=== PATIENT | male | born 1960 | race Caucasian/White ===

== ENCOUNTER 2021-06-09 13:48 | Emergency (ER) | payer MEDICARE, SELFPAY ==
--- NOTE | 2021-06-09 13:52 | ECG_ITS ---
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
[2021-06-09 14:08] VITALS: BP 138/76; PULSE 79; RESP 16; TEMP 37; O2SAT 96
--- NOTE | 2021-06-09 14:14 | XR_ITS ---
WS: [id number] XR chest 1V portable [id number] REASON FOR EXAM: SOB, Covid + FINDINGS: The heart and mediastinum are within normal limits. Calcified granulomatous disease is present in both hemithoraces. No acute pulmonary parenchymal or pleural abnormality is identified. Mild changes of degenerative spondylosis in the lower and mid thoracic spine. XR/XR chest 1V portable [id number] IMPRESSION: No acute chest abnormality identified.
--- NOTE | 2021-06-09 14:15 | W.ED.COVID ---
Documented by User: AMADOR Flores 06/10/21 08:03 HPI - COVID General: Chief Complaint: COVID symptoms Stated Complaint: COVID+:DIFF BREATHING,CP Time Seen by Provider: 06/09/21 14:12 Triage information: No fever, cough or shortness of breath. No known COVID + exposure last 14 days History of Present Illness: HPI Narrative: Patient is a 60-year-old male who comes to the ED with shortness of breath and chest pain. Patient was seen at PCP earlier today and they Covid tested patient and he was positive. They then sent patient here to the ED for PE work-up. Patient said he has had some mild aching chest pain that started approximately 2 days ago. Says it is constant and it started when he was at rest. He rates the pain 3 out of 10. He says it gets worse with exertion or after he eats. He also reports dry cough and some shortness of breath as well since onset of symptoms 2 days ago. COVID 19 common symptoms: positive chills, non-productive cough, dyspnea and body aches; negative fever(s), productive cough, fatigue, headache(s), throat pain, nasal congestion, nausea, vomiting or diarrhea COVID 19 other sytmptoms: positive chest pain COVID Results: No Data to Display Review of Systems Const: Reports: chills and body aches; Denies: fever(s) or fatigue Eyes: Denies: change in vision or eye discomfort ENMT: Denies: throat pain, odynophagia, nasal discharge or nasal congestion Card: Reports: chest pain; Denies: palpitations, edema, swelling of feet/ankles, dyspnea on exertion or orthopnea Resp: Reports: dyspnea and non-productive cough; Denies: productive cough GI: Denies: abdominal pain, nausea, vomiting, diarrhea, constipation or hematochezia : Denies: flank pain, difficulty urinating, dysuria or hematuria Musc: Denies: neck pain, back pain or extremity swelling Skin/Breast: Denies: rash or new lesions Neuro: Denies: headache(s), numbness in extremities or weakness in extremities Physical Exam Const: COMMON NORMALS: no acute distress, patient oriented x3 and alert GENERAL APPEARANCE: cooperative and comfortable HENMT: COMMON NORMALS: normocephalic HEAD & SCALP: normocephalic MOUTH: Normal oral and palatal mucosa present THROAT: posterior oropharynx normal and uvula midline Neck/C-Spine: COMMON NORMALS: supple GENERAL: Yes normal visual inspection Resp: COMMON NORMALS: normal respiratory effort, No retractions and No use of accessory muscles EFFORT & INSPECTION: Yes able to speak in complete sentences, No tachypneic, No respiratory distress, No labored, No Actively coughing and No audible wheezes AUSCULTATION: crackles Laterality: left (lower lobe-light crackles heard) Cardio: COMMON NORMALS: regular rate, regular rhythm, S1 normal heart sound present, S2 normal heart sound present, No gallops present (Cardio), No clicks present (Cardio), No murmurs present (Cardio) and Peripheral pulses 2+ throughout RATE: regular rate RHYTHM: regular rhythm HEART SOUNDS: S1 normal heart sound present and S2 normal heart sound present PERIPHERAL PULSES: Peripheral pulses 2+ throughout GI: COMMON NORMALS: Normal to inspection, nondistended, normoactive bowel sounds present, Soft to palpation, non-tender and no masses PALPATION: Yes Soft to palpation : COMMON NORMALS: Yes no CVA tenderness BLADDER/KIDNEY EXAM: Yes no CVA tenderness Back/Pelvis: COMMON NORMALS: no CVA tenderness Extremity: COMMON NORMALS: normal to inspection Neuro: COMMON NORMALS: patient oriented x3 and moves all extremities SENSORIUM/ORIENTATION: Yes alert Skin: GENERAL SKIN EXAM: dry skin Course ED course: Emergency department unit tender was able to get the COVID-19 test results from [facility] in [place], [place]. They faxed over the positive COVID-19 test and it was placed in his chart. Vital Signs: Vital signs: Vital Signs Temperature 98.6 F 06/09/21 14:08 Pulse Rate 85 06/09/21 17:40 Respiratory Rate 17 06/09/21 17:40 Blood Pressure 141/87 06/09/21 17:40 Pulse Oximetry 99 06/09/21 17:40 MDM - COVID MDM Narrative: Medical decision making narrative: Patient is a 60-year-old male who comes to the ED with shortness of breath and chest pain. Patient was seen at PCP earlier today and they Covid tested patient and he was positive. They then sent patient here to the ED for PE work-up. Chest pain is mild and he rates it 3 out of 10 it started 2 days ago at rest. Patient also having body aches and dry cough. Vitals stable. Exam findings are benign and patient appears in no acute distress or pain. CBC and CMP were unremarkable. Troponin is negative. D-dimer was 0.[address] I talked with Dr. Leiva about D-dimer levels and he did not recommend doing a CTA of the chest from a Covid positive patient at that D-dimer level. EKG showed normal sinus rhythm with no ST segment elevation or depression seen. Chest x-ray showed no pneumonia or other acute findings. The unit tender was able to get a copy of the COVID-19 positive test result from [facility] and [place] in put it in patient's chart. Patient was interested in getting the monoclonal antibody infusions and patient signed the consent form and I placed an order with case management for patient to be set up for MCA infusions as soon as possible. Patient diagnosed with COVID-19 and was discharged home with a prescription for Decadron. Return to ED precautions given. Patient understood and agreed with plan. Lab Data: Attestation: I reviewed the patient's lab results. Labs: Lab Results 06/09/21 06/09/21 06/09/21 15:27 15:27 15:27 WBC 3.4 10^3/uL L 10^ 3/uL (4.0-10.0) RBC 4.93 10^6/uL 10^6 /uL (4.1-5.3) Hgb 14.0 g/dL g/dL (11.7-16.6) Hct 42.9 % % (42.0-52.0) MCV 87.0 fl fl (80-94) MCH 28.4 pg pg (28.0-34.0) MCHC 32.6 g/dL g/dL (30.0-36.0) RDW 12.9 % % (12.1-15.1) Plt Count 212 10^3/cmm 10^3 /cmm (130-400) MPV 8.9 fL fL (7.4-10.4) Neut % (Auto) 72.0 % % Lymph % (Auto) 15.7 % % [place] % (Auto) 10.8 % % Eos % (Auto) 0.9 % % Baso % (Auto) 0.3 % % Neut # (Auto) 2.48 10^3/uL 10^3 /uL (1.8-7.7) Lymph # (Auto) 0.5 10^3/uL L 10^ 3/uL (0.8-4.8) [place] # (Auto) 0.4 10^3/uL 10^3/ uL (0.2-0.9) Eos # (Auto) 0.0 10^3/uL 10^3/ uL (0.0-0.8) Baso # (Auto) 0.0 10^3/uL 10^3/ uL (0.0-0.1) Nucleated RBC % (a uto) 0 % % Nucleated RBCs # 0.0 /100WBC /100W BC D-Dimer Sodium 137 mmol/L mmol/L (136-145) Potassium 3.9 mmol/L mmol/L (3.5-5.1) Chloride 99 mmol/L mmol/L (98-107) Carbon Dioxide 23 mmol/L mmol/L (22-29) Anion Gap 18.9 (5-19) BUN 13 mg/dL mg/dL (8-23) Creatinine 0.8 mg/dL mg/dL (0.7-1.2) GFR Calculation 98.6 mL/min mL/mi n (90-130) Glucose 75 mg/dL mg/dL (65-115) Calculated Osmolal ity 283 mOsm/kg L mOs m/kg (285-295) Calcium 8.5 mg/dL mg/dL (8.5-10.5) Troponin T Gen 5 n g/L 6 ng/L ng/L (0-15) NT-Pro-B Natriuret Pep 140 pg/mL H pg/mL (0-125) 06/09/21 15:27 WBC RBC Hgb Hct MCV MCH MCHC RDW Plt Count MPV Neut % (Auto) Lymph % (Auto) [place] % (Auto) Eos % (Auto) Baso % (Auto) Neut # (Auto) Lymph # (Auto) [place] # (Auto) Eos # (Auto) Baso # (Auto) Nucleated RBC % (a uto) Nucleated RBCs # D-Dimer 0.62 ug/mIFEU H u g/mIFEU (0-0.59) Sodium Potassium Chloride Carbon Dioxide Anion Gap BUN Creatinine GFR Calculation Glucose Calculated Osmolal ity Calcium Troponin T Gen 5 n g/L NT-Pro-B Natriuret Pep Imaging Data: CXR: Attestation: I personally reviewed and interpreted this imaging study as follows: Radiologist's impression: [address] [place] [address] XRay Report Signed Patient: Nicolas Garcia Unit #: [id number] : 1960 Age/Sex: 60 / M ADM Date: 06/09/21 Loc: ER Room/Bed: Attending Dr: Ordering Provider/Ordering MD: Edwin Ruano Date of Service: 06/09/21 Procedure(s): XR chest 1V portable [id number] Accession Number(s): [id number] Report Number: [id number] WS: [id number] XR chest 1V portable [id number] REASON FOR EXAM: SOB, Covid + FINDINGS: The heart and mediastinum are within normal limits. Calcified granulomatous disease is present in both hemithoraces. No acute pulmonary parenchymal or pleural abnormality is identified. Mild changes of degenerative spondylosis in the lower and mid thoracic spine. XR/XR chest 1V portable [id number] IMPRESSION: No acute chest abnormality identified. Dictated By: Jimmy Jimenez Jr, MD Signed By: Jimmy Jimenez Jr, MD Signed Date/Time: 06/09/21 1454 DD/ 1449 EKG Data: EKG 1: Attestation: I personally reviewed and interpreted this EKG as follows: EKG interpretation date: 06/09/21 Interpretation: Normal sinus rhythm, 60 bpm, no ST segment elevation or depression seen. COVID Results: No Data to Display Discharge Plan Discharge Patient Disposition: Home Clinical Impression: COVID-19 Condition: Stable Prescriptions: New dexamethasone [Decadron] 6 mg tablet 6 mg PO DAILY 7 Days Qty: 7 RF: 0 No Action atorvastatin 10 mg tablet 10 mg PO DAILY RF: 0 hydrocodone-acetaminophen 7.5-325 mg tablet 7.5 - 325 tab PO DAILY RF: 0 lisinopril 5 mg tablet 5 mg PO DAILY RF: 0 Discharge Orders: Discharge ED (Routine); Ordered 06/09/21 Ordered By: Edwin Ruano Referrals: Diane Marr PA-C [Primary Care Provider] - Discharge Diet: Regular Discharge Activity: Increase activity as tolerated Patient Instructions: Viral Syndrome (ED) Activity Restrictions/Additional Instructions: Follow-up with medical provider as directed. Case management will contact you to set up MCA infusion. Take medications as prescribed. Return to the ER or your medical provider if condition worsens. Please read and understand discharge instructions. Thank you for choosing [facility] for your healthcare needs today. Please realize this is an emergency room and that we are providing you with a medical screening exam and this may not be complete and all inclusive of all the testing and or work up that you may need to determine your ailment or severity of your illness. It is very important that you follow up as instructed or that you return to the Emergency Department should you have concerns or if your condition changes or worsens in any way. Coding Level of Care Code ED Head Waiter/Waitress Banquet for Chg Fwd Exam Comprehensive Documented by User: Jerardo Leiva DO 06/13/21 06:39 HPI - COVID General: Chief Complaint: COVID symptoms Stated Complaint: COVID+:DIFF BREATHING,CP Time Seen by Provider: 06/09/21 14:12 COVID Results: No Data to Display Course Vital Signs: Vital signs: Vital Signs Temperature 98.6 F 06/09/21 14:08 Pulse Rate 85 06/09/21 17:40 Respiratory Rate 17 06/09/21 17:40 Blood Pressure 141/87 06/09/21 17:40 Pulse Oximetry 99 06/09/21 17:40 MDM - COVID MDM Narrative: Medical decision making narrative: Chart reviewed and patient discussed with midlevel. Agree with assessment and plan. Lab Data: Labs: Lab Results 06/09/21 06/09/21 06/09/21 15:27 15:27 15:27 WBC 3.4 10^3/uL L 10^ 3/uL (4.0-10.0) RBC 4.93 10^6/uL 10^6 /uL (4.1-5.3) Hgb 14.0 g/dL g/dL (11.7-16.6) Hct 42.9 % % (42.0-52.0) MCV 87.0 fl fl (80-94) MCH 28.4 pg pg (28.0-34.0) MCHC 32.6 g/dL g/dL (30.0-36.0) RDW 12.9 % % (12.1-15.1) Plt Count 212 10^3/cmm 10^3 /cmm (130-400) MPV 8.9 fL fL (7.4-10.4) Neut % (Auto) 72.0 % % Lymph % (Auto) 15.7 % % [place] % (Auto) 10.8 % % Eos % (Auto) 0.9 % % Baso % (Auto) 0.3 % % Neut # (Auto) 2.48 10^3/uL 10^3 /uL (1.8-7.7) Lymph # (Auto) 0.5 10^3/uL L 10^ 3/uL (0.8-4.8) [place] # (Auto) 0.4 10^3/uL 10^3/ uL (0.2-0.9) Eos # (Auto) 0.0 10^3/uL 10^3/ uL (0.0-0.8) Baso # (Auto) 0.0 10^3/uL 10^3/ uL (0.0-0.1) Nucleated RBC % (a uto) 0 % % Nucleated RBCs # 0.0 /100WBC /100W BC D-Dimer Sodium 137 mmol/L mmol/L (136-145) Potassium 3.9 mmol/L mmol/L (3.5-5.1) Chloride 99 mmol/L mmol/L (98-107) Carbon Dioxide 23 mmol/L mmol/L (22-29) Anion Gap 18.9 (5-19) BUN 13 mg/dL mg/dL (8-23) Creatinine 0.8 mg/dL mg/dL (0.7-1.2) GFR Calculation 98.6 mL/min mL/mi n (90-130) Glucose 75 mg/dL mg/dL (65-115) Calculated Osmolal ity 283 mOsm/kg L mOs m/kg (285-295) Calcium 8.5 mg/dL mg/dL (8.5-10.5) Troponin T Gen 5 n g/L 6 ng/L ng/L (0-15) NT-Pro-B Natriuret Pep 140 pg/mL H pg/mL (0-125) 06/09/21 15:27 WBC RBC Hgb Hct MCV MCH MCHC RDW Plt Count MPV Neut % (Auto) Lymph % (Auto) [place] % (Auto) Eos % (Auto) Baso % (Auto) Neut # (Auto) Lymph # (Auto) [place] # (Auto) Eos # (Auto) Baso # (Auto) Nucleated RBC % (a uto) Nucleated RBCs # D-Dimer 0.62 ug/mIFEU H u g/mIFEU (0-0.59) Sodium Potassium Chloride Carbon Dioxide Anion Gap BUN Creatinine GFR Calculation Glucose Calculated Osmolal ity Calcium Troponin T Gen 5 n g/L NT-Pro-B Natriuret Pep COVID Results: No Data to Display Discharge Plan Discharge Patient Disposition: Home Clinical Impression: COVID-19 Condition: Stable Prescriptions: New dexamethasone [Decadron] 6 mg tablet 6 mg PO DAILY 7 Days Qty: 7 RF: 0 No Action atorvastatin 10 mg tablet 10 mg PO DAILY RF: 0 hydrocodone-acetaminophen 7.5-325 mg tablet 7.5 - 325 tab PO DAILY RF: 0 lisinopril 5 mg tablet 5 mg PO DAILY RF: 0 Discharge Orders: Discharge ED (Routine); Ordered 06/09/21 Ordered By: Edwin Ruano Referrals: Diane Marr PA-C [Primary Care Provider] - Discharge Diet: Regular Discharge Activity: Increase activity as tolerated Patient Instructions: Viral Syndrome (ED) Activity Restrictions/Additional Instructions: Follow-up with medical provider as directed. Case management will contact you to set up MCA infusion. Take medications as prescribed. Return to the ER or your medical provider if condition worsens. Please read and understand discharge instructions. Thank you for choosing [facility] for your healthcare needs today. Please realize this is an emergency room and that we are providing you with a medical screening exam and this may not be complete and all inclusive of all the testing and or work up that you may need to determine your ailment or severity of your illness. It is very important that you follow up as instructed or that you return to the Emergency Department should you have concerns or if your condition changes or worsens in any way. Coding Level of Care Code ED Head Waiter/Waitress Banquet for Dionne Marie Exam Comprehensive
[2021-06-09 15:40] LABS: Basophils % 0.3 %; Eosinophils % 0.9 %; Hematocrit 42.9 % (42.0-52.0); Lymphocytes # 0.5 10^3/uL (0.8-4.8); Lymphocytes % 15.7 %; Mean Corpuscular HGB Conc 32.6 g/dL (30.0-36.0); Mean Corpuscular Hemoglobin 28.4 pg (28.0-34.0); Mean Platelet Volume 8.9 fL (7.4-10.4); Monocytes # 0.4 10^3/uL (0.2-0.9); Monocytes % 10.8 %; Neutrophils # 2.48 10^3/uL (1.8-7.7); Nucleated Red Blood Cells % 0 %; Platelet Count 212 10^3/cmm (130-400); Red Blood Count 4.93 10^6/uL (4.1-5.3); Red Cell Distribution Width 12.9 % (12.1-15.1); White Blood Count 3.4 10^3/uL (4.0-10.0)
[2021-06-09 16:01] LABS: D Dimer 0.62 ug/mIFEU (0-0.59)
[2021-06-09 16:11] LABS: Troponin T (5th) Once 6 ng/L (0-15)
[2021-06-09 16:21] LABS: Anion Gap 18.9 (5-19); Blood Urea Nitrogen 13 mg/dL (8-23); Calcium 8.5 mg/dL (8.5-10.5); Carbon Dioxide 23 mmol/L (22-29); Chloride 99 mmol/L (98-107); Glomerular Filtration Rate 98.6 mL/min (90-130); Glucose 75 mg/dL (65-115); NT Pro B Type Natriuretic Pept 140 pg/mL (0-125); Osmolality Calculated 283 mOsm/kg (285-295); Potassium 3.9 mmol/L (3.5-5.1); Sodium 137 mmol/L (136-145)
[2021-06-09 16:57] VITALS: BP 120/77; PULSE 75; RESP 15; O2SAT 99
[2021-06-09 17:40] VITALS: BP 141/87; PULSE 85; RESP 17; O2SAT 99
--- NOTE | 2021-06-11 13:19 | DCPLANNER ---
fleet maintenance manager had message to schedule an outpatient MCA infusion for patient. fleet maintenance manager faxed order to centralized scheduling who will call patient with appointment information.
== END 2021-06-09 17:43 | disposition home or self-care (01) ==
PROVIDERS: Emergency Medicine; Emergency Provider Physician Assistant; PCP Physician Assistant
DX: U07.1 COVID-19 (principal)
CPT/HCPCS: 71045; 80048; 83880; 84484; 85025; 85378; 93005; 99283

== ENCOUNTER 2021-06-10 13:57 | Outpatient (CLI) | payer MEDICARE, SELFPAY ==
[2021-06-10 14:45] VITALS: BP 118/67; PULSE 78; RESP 18; TEMP 37; O2SAT 95; BMI 33.3
[2021-06-10 15:05] VITALS: BP 104/68; PULSE 67; RESP 16; O2SAT 96
[2021-06-10 16:06] VITALS: BP 113/71; PULSE 67; RESP 16; TEMP 36.8; O2SAT 98
== END 2021-06-10 13:58 | disposition home or self-care (01) ==
LOC: OPS 13:58
PROVIDERS: PCP Physician Assistant; Visit Provider Physician Assistant
DX: U07.1 COVID-19 (principal)
CPT/HCPCS: 96365

== ENCOUNTER → 2021-09-15 08:39 | Outpatient (BNVA) | payer MEDICARE, SELFPAY | PROVIDERS: PCP Physician Assistant; Visit Provider Orthopaedic Surgery | DX: M54.50 Low back pain, unspecified (principal) | CPT/HCPCS: 72050; 72110 ==

== ENCOUNTER → 2021-11-08 10:17 | Outpatient (BNVA) | payer MEDICARE, SELFPAY | PROVIDERS: PCP Family Medicine; Visit Provider Orthopaedic Surgery | DX: M48.062 Spinal stenosis, lumbar region with neurogenic claudication (principal) | CPT/HCPCS: 73130; 99214 ==

== ENCOUNTER 2021-12-12 20:22 | Inpatient (IN) | payer MEDICARE, SELFPAY ==
[2021-12-05 20:05] VITALS: BP 155/80; PULSE 78; RESP 17; TEMP 36.6; O2SAT 95
[2021-12-09 08:48] VITALS: BMI 24.3
--- NOTE | 2021-12-09 09:35 | P.ANESASSM_ITS ---
Pre-Anesthetic Assessment Height/Weight: Height 1.75 m Weight 74.843 kg Operation Date: 12/12/21 09:55 Proposed Procedures p Posterior Lumbar Interbody Fusion L4-S1 PLIF @ L4/5 [id number]/95541/M48.062(Not Applicable) - Michael Rutledge DO s Posterior Spinal FusionL4-S1(Not Applicable) - Michael Rutledge DO Familial anesthetic complications: None Was Beta Freddie taken within 24 hours: N/A Was Clonidine taken within 24 hours: N/A Social No alcohol and No tobacco Exam alert, oriented x 3, clear to auscultation bilaterally and regular rate & rhythm Airway Submandibular: within normal limits Cervical ROM: within normal limits Mallampati: Class II Dentition: full CV/HEM Hypertension Metabolic Hyperlipidemia [facility] [place] Lower Back Pain Chronic pain/opioid Anesthetic Plan ASA status: 3 Anesthesia: General Other: Discussed a.line and transfusion Medications/Allergies Home Medications Medication Instructions Recorded Confirmed Last Taken Type atorvastatin 10 mg tablet 10 mg PO DAILY 06/10/21 12/09/21 Unknown History lisinopril 5 mg tablet 5 mg PO DAILY 06/10/21 12/09/21 06/10/21 History hydrocodone 7.5 mg-acetaminophen 1 tab PO Q8H PRN 09/15/21 12/09/21 Unknown History 325 mg tablet fluticasone propionate 50 1 spray INTRANASAL DAILY 11/08/21 12/09/21 Unknown History mcg/actuation nasal spray,suspension (Flonase Allergy Relief) Allergies Allergy/AdvReac Type Severity Reaction Status Date / Time morphine Allergy Unknown Verified 11/08/21 14:59 tramadol Allergy Unknown Verified 11/08/21 14:59 PFSH Anesthesia Social History Smoking and tobacco status: former smoker Data Anesthesia : 12/09/21 09:03 Cardiac Studies: No Data to Display
[2021-12-09 09:55] LABS: Anion Gap 14.1 (5-19); Blood Urea Nitrogen 20 mg/dL (8-23); Calcium 9.4 mg/dL (8.5-10.5); Carbon Dioxide 27 mmol/L (22-29); Chloride 101 mmol/L (98-107); Creatinine Clr Calc Pharmacy 114.8527; Glucose 88 mg/dL (65-115); Osmolality Calculated 288 mOsm/kg (285-295); Potassium 4.1 mmol/L (3.5-5.1); Sodium 138 mmol/L (136-145)
[2021-12-12] VITALS (38 sets, daily range): BP systolic 110–171; BP diastolic 58–130; PULSE 62–99; RESP 10–36; TEMP 36.4–37.3; O2SAT 87–100
--- NOTE | 2021-12-12 | SCC_ITS ---
Procedure done: 1. L4/5 Interbody fusion with posterolateral fusion 2. Instrumentation L4-S1 3. Posterolateral fusion L4-S1 4. Cage at L4/5 5. Laminectomy L4 6. use of autograft from same incision 7. allograft 8. Bone marrow aspirate from right iliac crest 9. Computer navigation stereotactic 5 seconds of fluoroscopic guidance, for a cumulative dose of 25.7 mGy, was provided to Dr. Rutledge by the radiology department. C-arm images of the lumbar spine were saved for the patient's permanent record. LORENZA
--- NOTE | 2021-12-12 | XR_ITS ---
WS: [id number] INTRAOPERATIVE TECHNIQUE: 5 Spot fluoroscopic images for intraoperative purposes. FLUOROSCOPY TIME: 14 seconds CLINICAL INFORMATION: plif l4-s1 FINDINGS: New postoperative changes changes pedicle screw fixation L4-S1 with interbody fusion L4-L5. Prior ant erior fusion L5-S1. XR/XR lumbar spine 2-3V* [id number] IMPRESSION: Images obtained for intraoperative purposes.
[2021-12-12] MEDS: sodium chloride 0.9% 1,000 ML 30 ML IV (08:51)
--- NOTE | 2021-12-12 09:32 | PM.HP ---
Providers/Chief Complaint Primary Care Provider: Cecelia Maloney DO Chief Complaint: PLIF L4-S1 [id number]/M48.062 History of Present Illness Nicolas Garcia is a 61 year old male ?lower back pain and neck pain.? Patient states pain is worse in Lower back and rates pain at 7/10 in clinic today. Onset: chronic Duration: 20 years Characteristics: ache, throb, sharp Severity: 7 Location: lower back Radiating symptoms: left leg and feet Aggravating factors: movement Alleviating factors: rest-laying flat Neuro deficits: left leg numbness, tingling on the outside of the leg Prior tx: C spine fusion 03/2012, and L spine fusion in November 2011.- REAL 2019 stopped due to headaches, nerve block 2019, Physical therapy 1 year ago, acupuncture 1.5 years ago. Review of Systems Const: Denies: fever(s) or chills Card: Denies: chest pain or dyspnea on exertion Resp: Denies: dyspnea or productive cough GI: Denies: abdominal pain, nausea or vomiting Musc: Reports: back pain, extremity pain and limited range of motion Skin/Breast: Denies: changes in skin color or dry skin Neuro: Denies: numbness in extremities or weakness in extremities Psych: Denies: anxiety Jason/Lymph: Denies: easy bruising or easy bleeding Medications/Allergies Home Medications Medication Instructions Recorded Confirmed Last Taken Type atorvastatin 10 mg tablet 10 mg PO DAILY 06/10/21 12/12/21 12/11/21 History lisinopril 5 mg tablet 5 mg PO DAILY 06/10/21 12/12/21 12/11/21 History hydrocodone 7.5 mg-acetaminophen 1 tab PO Q8H PRN 09/15/21 12/12/21 12/11/21 History 325 mg tablet fluticasone propionate 50 1 spray INTRANASAL DAILY 11/08/21 12/12/21 12/11/21 History mcg/actuation nasal spray,suspension (Flonase Allergy Relief) albuterol sulfate 90 mcg/actuation 1 puff INHALATION PRN 12/12/21 12/12/21 12/12/21 History aerosol inhaler Allergies Allergy/AdvReac Type Severity Reaction Status Date / Time morphine Allergy ADR-Anxiety Verified 12/12/21 08:11 tramadol Allergy Unknown Verified 11/08/21 14:59 PFSH Acute PFSH: Social History Smoking and tobacco status: former smoker Vitals/I&O/Wt Last Vital Signs Temp 97.5 F L 12/12/21 08:19 Pulse 62 12/12/21 08:19 Resp 18 12/12/21 08:19 BP 141/81 12/12/21 08:19 Pulse Ox 99 12/12/21 08:19 Physical Exam Narrative: CONSTITUTIONAL: The patient is a normal appearing [] in no apparent distress. GENERAL: Patient in no acute distress. CARDIAC: Regular rate and rhythm. CHEST: Normal inspiratory effort, normal respiratory rate. ABDOMEN: Soft and nontender. SKIN: Clear, warm and intact. NEURO?PSYCH: The patient is alert and oriented to person, place and time. Sensorv /SILT Motor StrengthShoulder abduction C5 5/5Wrist extension C6 5/5Elbow extension C7 5/5Hand Wheelchair Van Driver C8 5/5Finger abduction T15/5 Radial/ Ulnar/ Median n intact LowerSensory (SILT)Motor StrengthHin flexion L2/3Ant/inner thigh 5/5Hip adduction L2/3 5/5Knee extension L4 Lat thigh, 5/5Toe dorsiflexion L5 5/5Ankle dorsiflexion L5/ A24Bbfjjdu flexion S1 5/5 DTRBleeps 2+Triceps 2+Brachioradialis 2+Patellar 2+Achilles 2+ MUSCULOSKELETAL: [] UPPEREXTREMITIES: The patient had full active ROM in fingers, wrist, elbow, and shoulder. The patient demonstrated ability to fully flex/extend/abduct/adduct fingers, make ok sign, cross 2nd/3rd digits, extend 1st digit fully.. Radial pulse 2+, CR<2 seconds. LOWER EXTREMITIES: Pt has full, active ROM of toes, ankle, knee, and hip. Dorsalis pedis/posterior tibialis pulses 2+, CR<2 seconds. SPINE: Skin warm, dry, intact. Data : 12/09/21 09:03 A&P Assessment and plan (1) Lumbar stenosis with neurogenic claudication: L4-S1 fusion Status: Acute Attestations Medical Necessity Statement*: failed conservtive tx Coding Level of Care Code Acute Patternmaker Sample for Chg Fwd Diagnoses Lumbar stenosis with neurogenic claudication M48.06
--- NOTE | 2021-12-12 09:59 | P.ANESUD_ITS ---
Pre-Anesthetic Update Pre-Anesthetic Assessment: Date of Surgery/Procedure: 12/12/21 Preop Daphne gnosis: Lumbar stenosis with neurogenic claudication. Previous L5-S1 anterior fusi Proposed Procedure: Operation Date: 12/12/21 09:35 Proposed Procedures p Posterior Lumbar Interbody Fusion L4-S1 PLIF @ L4/5 [id number]/M48.062(Not Applicable) - Michael Rutledge, DO s Posterior Spinal FusionL4-S1(Not Applicable) - Michael Rutledge, DO Any changes to Pre-Anesthetic Assessment?: No Last Intake: Intake Last Liquid Date 12/12/21 Last Liquid Time 07:00 Last Solid Date 12/11/21 Last Solid Time 21:00 Vitals: Temperature 97.5 F L 12/12/21 08:19 Temperature Source Temporal Artery S can 12/12/21 08:19 Pulse Rate 62 12/12/21 08:19 Respiratory Rate 18 12/12/21 08:19 Blood Pressure 141/81 12/12/21 08:19 Blood Pressure Sophy n 101 12/12/21 08:19 Pulse Oximetry 99 12/12/21 08:19 Oxygen Delivery Me thod 12/12/21 08:19 Exam: Pre-Anes Outpt Exam: alert, oriented x 3, clear to auscultation bilaterally and regular rate & rhythm Cardiac Studies: No Data to Display
[2021-12-12] MEDS: vancomycin 1,000 MG SDV 1000 MG XX (10:56)
[2021-12-12] MEDS: heparin, porcine 1,000 unit/mL INJ 10 mL 10000 UNIT IRRIGATION (10:58)
[2021-12-12] MEDS: fentaNYL 50 mcg/mL INJ 2mL IVP ×2 (13:16→13:26)
--- NOTE | 2021-12-12 13:21 | P.OP_ITS ---
Operative Report Date of procedure: December 12, 2021 Pre-op diagnosis: Preop Diagnosis Lumbar stenosis with neurogenic claudication. Previous L5-S1 anterior fusi Post-op diagnosis: same Procedure done: 1. L4/5 Interbody fusion with posterolateral fusion 2. Instrumentation L4-S1 3. Posterolateral fusion L4-S1 4. Cage at L4/5 5. Laminectomy L4 6. use of autograft from same incision 7. allograft 8. Bone marrow aspirate from right iliac crest 9. Computer navigation stereotactic Surgeon: Michael Rutledge Sleeper Cutter: Todd Burnett Estimated blood loss (mL): 300 Procedure: 1. L4/5 Interbody fusion with posterolateral fusion 2. Instrumentation L4-S1 3. Posterolateral fusion L4-S1 4. Cage at L4/5 5. Laminectomy L4 6. use of autograft from same incision 7. allograft 8. Bone marrow aspirate from right iliac crest 9. Computer navigation stereotactic Patient is brought to the operative suite. After undergoing anesthesia, the patient had neuro monitoring attached. Patient was then placed in the prone position on the Eladio table. All areas of impingement were well-padded. Patient was then prepped and draped in the normal sterile fashion. Skin incision was then made over the L4-S1 space. Subperiosteal dissection was made out to the transverse processes of L4 and L5 and sacral ala. Once the exposure was complete attention was then brought to obtaining bone marrow aspirate. The [employer] bone marrow aspirate kit was used to aspirate bone marrow aspirate. This was done by using the sharp probe to open up the bone. Aspiration was performed and then the blunt probe was then used to dissect down to through the bone tunnel. An aspirating well drawn back a millimeter approximately 20 cc of bone marrow aspirate was used. Admixed with the allograft and autograft bone that will be used. Next attention was brought to placing the fiducial for computer navigation. 2 stab incisions were made over the iliac crest. The pins were placed into the iliac crest. These pins were later be removed at the end of the case. Once the pins were placed then the fiducial was attached. The C-arm was brought in. The information from the C-arm was then loaded in the computer through the fiducial. In order to facilitate using the computer navigation for placement of the pedicle screws. The technique for placing the pedicle screws was to use a drill followed by the gearshift probe linked to computer navigation Followed by the ball probe to feel the superior inferior medial lateral rios of the pedicles. Then placement of the screws using computer navigation. Was done at each pedicle. Screws were placed at L4 bilaterally and L 5 bilaterally and S1 bilaterally Next attention was brought to performing the laminectomy ofL4. This was done using the high-speed bur Kerrisons and curettes. Once the lamina was removed and then attention was brought to performing a partial facetectomy on the contralateral side. This was done again using the high-speed bur curettes and Kerrisons. The ligamentum flavum was taken down bilaterally from L4 to L5. Attention was then brought to the facet on the ipsilateral side. The facet was taken down. The L5 nerve was decompressed as it passed around the L5 pedicle. The laminectomy was done for purposes of decompressing the nerve as well as placement of the cage. The L4 nerve was identified as it traversed through the L4/5 foramen. The thecal sac was identified and retracted. The L4/5 disc base was identified. Using a knife the disc base was opened. And then sequential javier were placed. The first shaver was a 6 and the last shaver was a 12. Using a pituitary and down going curette the endplates were scraped and disc material was removed from the space. Once adequate decompression of the disc base was felt to be had. Osteoamp sponge was packed into the anterior aspect of the disc base. Then a size 13 cage from [employer] was placed after packing osteoamp into the cage. While placing the cage the thecal sac and L5 nerve was protected. C arm was used to ensure that the cages placed in the appropriate position. Attention was then brought to attaching the rods to the screws placed in the L4 bilaterally, and L5 bilaterally and S1 bilaterally. Caps were torqued into position. Locking the construct in place. Wound was copiously irrigated and then attention was brought to decorticating the facets and transverse processes laterally. Bone that was taken down from the lamina was used along with osteoamp fibers and sponges were packed into the lateral gutters along the facet joints. This was done bilaterally. Wound was then closed in a layered fashion starting with the thoracolumbar fascia. 0-vicryl was used the sub cutaneous tissue was closed with 2-0 vicryl and skin with 4-0 monocryl. Glue was then used to seal the skin and a steril dressing was applied. Patient was then placed in the supine position. The endotracheal tube was removed and patient was transferred to the PACU in stable condition.
[2021-12-12] MEDS: HYDROmorphone 1 mg/mL INJ 1 mL 0.5 MG IVP ×3 (13:42→14:08)
[2021-12-12] MEDS: acetaminophen 1,000 MG/100 ML PIGGYBACK 400 MG IV (14:25)
[2021-12-12] MEDS: magnesium sulfate premix 2 GM/50 ML PIGGYBACK IV (14:46)
[2021-12-12] MEDS: HYDROcodone-acetaminophen 5-325 mg Tablet PO ×2 (15:23→19:27)
[2021-12-12] MEDS: HYDROmorphone 1 mg/mL INJ 1 mL 0.4 MG IVP ×2 (18:46→23:21)
--- NOTE | 2021-12-12 19:27 | ANE.PACU2 ---
Inpatient post-anesthesia follow up: Airway intact: Yes Vital signs: Temperature 97.8 F Pulse Rate 66 Respiratory Rate 18 Blood Pressure 148/72 Pulse Oximetry 95 Oxygen Delivery Me thod Room Air Oxygen Flow Rate 2 Fraction of Inspir ed Oxygen Hydration adequate: Yes Nausea and vomiting: No Pain level: 6 Mental status: Baseline
[2021-12-12] MEDS: ketorolac 30 mg/mL INJ IVP (21:14)
[2021-12-12] MEDS: lactated ringers 1,000 ML 90 ML IV (21:17)
[2021-12-12] MEDS: oxyCODONE-APAP 10-325 mg Tablet PO (21:37)
[2021-12-12] MEDS: docusate sodium 100 mg Capsule PO (21:51)
[2021-12-12] MEDS: diphenhydrAMINE 50 mg Capsule PO (23:21)
[2021-12-13] VITALS (14 sets, daily range): BP systolic 134–151; BP diastolic 63–79; PULSE 71–82; RESP 16–20; TEMP 36.4–36.7; O2SAT 92–98
[2021-12-13] MEDS: oxyCODONE-APAP 10-325 mg Tablet PO (01:41)
[2021-12-13] MEDS: lactated ringers 1,000 ML 90 ML IV ×2 (01:43→11:13)
[2021-12-13] MEDS: ketorolac 30 mg/mL INJ IVP ×3 (04:04→19:41)
[2021-12-13] MEDS: oxyCODONE 5 mg IR Tab/Cap PO ×4 (05:44→21:03)
[2021-12-13] MEDS: enoxaparin 40 mg/0.4 mL Syringe SUBCUT (05:45)
--- NOTE | 2021-12-13 07:48 | P.PN_ITS ---
Subjective Subjective: POD 1 Patient resting comfortably with family present. Reports mild back pain but states his legs feel much better. He denies any shortness of breath, chest pain, headaches. Vitals/I&O/Wt Last Vital Signs Temp 97.8 F 12/13/21 06:35 Pulse 74 12/13/21 06:35 Resp 17 12/13/21 06:35 BP 151/77 12/13/21 06:35 Pulse Ox 97 12/13/21 06:35 12/12/21 12/13/21 12/13/21 22:59 06:59 14:59 Intake Total 1440 / 2190 1449 / 3639 Output Total 25 / 800 1940 / 2740 Balance 1415 / 1390 -491 / 899 Physical Exam Narrative: Patient presents alert and oriented x3 with a good general appearance normal mood and affect. Normal coordination normal stability. Mild tenderness around the incisional site with the incision appear to be clean and dry. Patient denies any fevers or chills. 5/5 motor strength both lower extremities with negative straight leg raise bilaterally. Calves are supple no medial thigh tenderness. Pulses are 2+ at the dorsalis pedis and posterior tibial region. Good capillary refill throughout normal sensation light touch both lower extremities. Urinary Catheter Management: Nieves: Cath Placed During This Visit: yes Reason for Continuing Indwelling Catheter: Perioperative Use in Selected Surgeries Urinary Catheter Date of Insertion: 12/12/21 Urinary Catheter Time of Insertion: 10:35 Data : 12/09/21 09:03 A&P Assessment and plan (1) Status post lumbar spinal fusion: Discharge home tomorrow once he gains better pain control with medications. E ncouraged him to continue walking program. Physical therapy will evaluate. We will discontinue Nieves catheter and Hemovac drain. Status: Acute Attestations Medical Necessity Statement*: home tomorrow Coding Level of Care Code Acute South Asian History Professor for Chg Fwd Diagnoses Status post lumbar spinal fusion Z98.1
[2021-12-13] MEDS: HYDROmorphone 1 mg/mL INJ 1 mL 0.4 MG IVP (08:10)
[2021-12-13] MEDS: albuterol 8 gm MDI 1 PUFF INHALATION (09:07)
[2021-12-13] MEDS: docusate sodium 100 mg Capsule PO ×2 (09:46→17:12)
[2021-12-13] MEDS: atorvastatin 40 mg Tablet 10 MG PO (09:46)
[2021-12-13] MEDS: lisinopril 5 mg Tablet PO (09:51)
[2021-12-13] MEDS: acetaminophen 325 mg Tablet 650 MG PO (17:15)
--- NOTE | 2021-12-13 17:20 | PC.NURSE ---
Patient AAOx4, VSS, c/o pain throughout shift but controlled with pain medications. Patient concerned that if he were to leave tonight that he would be in pain and that worries him. Requesting to stay one more night. Physician notified. Patient resting in bed currently with call light in reach, room clean and clutter free. Hemavac and huntley removed early in shift with no difficulties. Dressing to back is clean dry and intact. No concerns following hemavac removal. No new needs at this time. OOBTC and ambulating multiple times throughout shift with multiple educations of ambulating importance.
[2021-12-14] VITALS (8 sets, daily range): BP systolic 124–149; BP diastolic 68–83; PULSE 77–83; RESP 16–18; TEMP 36.6–37.2; O2SAT 92–98
[2021-12-14] MEDS: HYDROmorphone 1 mg/mL INJ 1 mL 0.4 MG IVP (01:24)
[2021-12-14] MEDS: oxyCODONE 5 mg IR Tab/Cap PO ×2 (04:40→08:50)
[2021-12-14] MEDS: lactated ringers 1,000 ML 90 ML IV (04:41)
[2021-12-14] MEDS: acetaminophen 325 mg Tablet 650 MG PO ×2 (05:21→08:49)
[2021-12-14] MEDS: enoxaparin 40 mg/0.4 mL Syringe SUBCUT (05:22)
--- NOTE | 2021-12-14 06:41 | P.PN_ITS ---
Subjective Subjective: POD 2 Patient resting comfortably. Reports mild back pain but improved with medications. Denies any chest pain, shortness of breath or headaches. He is ready for discharge home today. Vitals/I&O/Wt Last Vital Signs Temp 97.9 F 12/14/21 04:00 Pulse 83 12/14/21 04:00 Resp 18 12/14/21 04:40 BP 143/76 12/14/21 04:00 Pulse Ox 96 12/14/21 04:00 12/13/21 12/13/21 12/14/21 14:59 22:59 06:59 Intake Total 1265 / 1265 1480 / 2745 Output Total 1050 / 1050 1375 / 2425 1200 / 3625 Balance 215 / 215 105 / 320 -1200 / -880 Physical Exam Narrative: Patient presents alert and oriented x3 with a good general appearance normal mood and affect. Normal coordination normal stability. Mild tenderness around the incisional site with the incision appear to be clean and dry.. No signs of erythema or drainage. No signs of infection. Patient denies any fevers or chills. 5/5 motor strength both lower extremities with negative straight leg raise bilaterally. Calves are supple no medial thigh tenderness. Pulses are 2+ at the dorsalis pedis and posterior tibial region. Good capillary refill throughout normal sensation light touch both lower extremities. Urinary Catheter Management: Nieves: Cath Placed During This Visit: yes, but has since been removed by the nurse Reason for Continuing Indwelling Catheter: Decision to DC Catheter Urinary Catheter Date of Insertion: 12/12/21 Urinary Catheter Time of Insertion: 10:35 Date Urinary Catheter Removed: 12/13/21 Time Urinary Catheter Discontinued: 08:15 Data : 12/09/21 09:03 A&P Assessment and plan (1) Status post lumbar spinal fusion: And physical therapy to mobilize the patient this morning. Discharge home later this morning. Patient will follow up in 1 week's time. Continue walking program with no bending lifting or twisting. Continue with home incentive spirometry for pulmonary toilet. Status: Acute Attestations Medical Necessity Statement*: Home later this morning Coding Level of Care Code Acute Sandblast Carver for Dionne Fwjuan Diagnoses Status post lumbar spinal fusion Z98.1
[2021-12-14] MEDS: albuterol 8 gm MDI 1 PUFF INHALATION (07:51)
[2021-12-14] MEDS: atorvastatin 40 mg Tablet 10 MG PO (08:24)
[2021-12-14] MEDS: lisinopril 5 mg Tablet PO (08:24)
[2021-12-14] MEDS: docusate sodium 100 mg Capsule PO (08:25)
--- NOTE | 2021-12-15 14:06 | P.DS_ITS ---
Discharge Providers Date of Admission: 12/12/21 20:22 Date of Discharge: December 14, 2021 Attending Provider at Admission: Michael Rutledge DO Attending Provider at Discharge: Michael Rutledge DO Primary Care Provider: Cecelia Maloney DO Diagnoses at Discharge Discharge Diagnosis (1) Status post lumbar spinal fusion: Status: Acute Reason for Visit Reason for Visit: PLIF L4-S1 [id number]/M48.062 Hospital Course Hospital Course uneventful Physical Exam Urinary Catheter Management: Nieves: Cath Placed During This Visit: yes, but has since been removed by the nurse Reason for Continuing Indwelling Catheter: Decision to DC Catheter Urinary Catheter Date of Insertion: 12/12/21 Urinary Catheter Time of Insertion: 10:35 Date Urinary Catheter Removed: 12/13/21 Time Urinary Catheter Discontinued: 08:15 Discharge Data Studies Completed and Pending Completed Studies During Hospitalization Category Date Time Status XR lumbar spine 2-3V* [id number] Routine Exams 12/12/21 Completed Radiology Impressions Lumbar Spine X-Ray 12/12/21 00:00 IMPRESSION: Images obtained for intraoperative purposes. Laboratory Results Sodium 138 mmol/L (136-145) 12/09/21 09:03 Potassium 4.1 mmol/L (3.5-5.1) 12/09/21 09:03 Chloride 101 mmol/L (98-107) 12/09/21 09:03 Carbon Dioxide 27 mmol/L (22-29) 12/09/21 09:03 Anion Gap 14.1 (5-19) 12/09/21 09:03 BUN 20 mg/dL (8-23) 12/09/21 09:03 Creatinine 0.7 mg/dL (0.7-1.2) 12/09/21 09:03 GFR Calculation 115.0 mL/min (90-130) 12/09/21 09:03 Glucose 88 mg/dL (65-115) 12/09/21 09:03 Calculated Osmolality 288 mOsm/kg (285-295) 12/09/21 09:03 Calcium 9.4 mg/dL (8.5-10.5) 12/09/21 09:03 Vitals Last Vital Signs Temp 98.9 F 12/14/21 07:56 Pulse 78 12/14/21 07:56 Resp 18 12/14/21 10:07 BP 124/68 12/14/21 10:07 Pulse Ox 98 12/14/21 10:07 Discharge Plan Discharge Patient Disposition: Home Condition: Stable Prescriptions: New oxycodone 10 mg tablet 10 - 20 mg PO Q4H PRN (Reason: pain) 7 Days Qty: 40 0RF cyclobenzaprine 10 mg tablet 10 mg PO TID PRN (Reason: muscle spasm) Qty: 60 0RF Continued hydrocodone-acetaminophen 7.5-325 mg tablet 1 tab PO Q8H PRN (Reason: Pain, Moderate) 0RF fluticasone propionate [Flonase Allergy Relief] 50 mcg/actuation spray,suspension 1 spray intranasal DAILY 0RF Rx Instructions: administer into each nostril atorvastatin 10 mg tablet 10 mg PO DAILY 0RF lisinopril 5 mg tablet 5 mg PO DAILY 0RF albuterol sulfate 90 mcg/actuation HFA aerosol inhaler 1 puff INHALATION PRN 0RF Discharge Orders: Discharge Order (Routine); Ordered 12/13/21 Ordered By: Todd Burnett Referrals: Michael Rutledge DO [Physician] - 12/20/21 1:45 pm Cecelia Maloney DO [Primary Care Provider] - 12/16/21 10:20 am Discharge Diet: Advance as tolerated Discharge Activity: Resume usual activity Patient Instructions: Cyclobenzaprine (By mouth) (Flexeril, Amrix, Fexmid, FusePaq Tabradol), Oxycodone, Rapid Release (By mouth) (ETH-Oxydose, Oxy IR,..., Lumbar Spinal Fusion (GEN), Opioid Safety Activity Restrictions/Additional Instructions: Thank you for choosing [facility] for your care! The following is a list of instructions, from your provider, to follow upon your discharge to ensure you have the optimal recovery from your recent injury or surgery. Follow-up care is a scott part of your treatment and safety. Be sure to make and go to all appointments and call your doctor if you are having problems. If you do not already have a follow-up appointment made, call Dr. Rutledge's] office in the next 1-3 days to make follow up appointment for 1 weeks at [phone]. It is also a good idea to know your test results and keep a list of the medicines you take. Medications will be prescribed for you at your provider's discretion. These medications are to be used as instructed; if they are taken more often that prescribed they will not be refilled early and in most cases will not be refilled at all. > When a refill is needed, you should contact wilfredo kerns 2-3 business days before your prescription runs out. Medications will NOT be refilled by emanations analysis technician providers after hours! > Many pain medications contain Tylenol (Acetaminophen). Do not consume more than 4,000 mg of Tylenol per day in total with any combination of medications. > Pain medications can cause constipation. Please use an over the counter stool softener as directed, while taking pain medications. Consult your local pharmacist with questions or recommendations on stool softeners. If constipation persists, contact our office or your primary care provider. > While under our care, you are not to receive pain medications or other controlled substances from any other provider unless our office is notified and approves. Any attempts to do so will result in refusal to prescribe any further pain medications and possible dismissal from our practice. ? Walking is essential for the healing process after surgery. We would like you to slowly advance your walking. This should be done on relatively flat clear ground (inside or out) or can be done on a treadmill. Remember this goal does not have to happen all at once, slowly increase your distance and duration. This can be broken into more more than one walk per day as tolerated. Patients who walk as directed after surgery rarely require Physical Therapy. In the unlikely event this issue arises your provider will direct hospital staff to make the appropriate arrangements. ? No lifting over 5 pounds {a gallon of milk) or bending/twisting until further notice. Each of these activities places an unnecessary amount of stress onto the body and can impede the delicate healing process. > Instead of bending at the waist, keep your back straight and bend at the knees. > Instead of twisting your torso, keep your back straight and turn your entire body with your feet. ? You may sleep in any position which makes you comfortable. Many patients find comfort sleeping in a reclining chair. It is not abnormal to have difficulty sleeping for the first several weeks following your surgery. We recommend trying Benadry! or Tylenol PM as directed to help with your sleeping difficulties. Both medications are over the counter and available without prescription. ? NO SMOKING!!! Smoking dramatically increases the probability of developing postoperative wound infections. ? Common complaints after lumbar and/or thoracic spine surgery include, but are not limited to: numbness and/or tingling in the legs, pain around the incision and surrounding tissues, muscle spasms, or stiffness of the middle to low back. Contact our office if these symptoms persist or if an acute change occurs. ? No driving for the first 3-5days, and not while taking narcotics until seen at your follow-up appointment and cleared. There are no restrictions for riding on short trips, however if you take a longer trip, arrangements should be made to make regular stops to get out of the vehicle and stretch . ? Swelling is an unfortunate event that will take place with any s urgery and is the primary source of your postoperative discomfort. While walking and regular approved activities helps control inflammation, there are additional steps you can take to minimize swelling. > Place ice over the surgical site and surrounding tissue for twenty minutes, followed by applying a low/medium heat (heating pad) for an additional twenty minutes every 1-2 hours as needed for painrelief. > You may use of over the counter anti-inflammatory medications (Ibuprofen, Motrin, Aleve, Advil, etc) as directed on the package label. These types of medicines will significantly reduce the amount of discomfort you experience after surgery from swelling. It should be noted that if you have and allergy to any of these medications, or a history of ulcers or kidney disease yo u should consult you primary care provider prior to starting these medications. Discharge Attestations Time Spent in Discharge Care*: less than 30 min Quality Metrics Clinical Quality Measures [ No reported AMI, CVA or VTE this stay] Coding Level of Care Code Acute [facility] note Diagnoses Status post lumbar spinal fusion Z98.1
== END 2021-12-14 10:08 | disposition home or self-care (01) | DRG 455 ==
LOC: MEDSURG 20:38
PROVIDERS: Anesthesiology; Admitting Provider Orthopaedic Surgery; PCP Family Medicine; Visit Provider Orthopaedic Surgery
PROC: 0SG00AJ Fusion of Lumbar Vertebral Joint with Interbody Fusion Device, Posterior Approach, Anterior Column, Open Approach (ICD-10-PCS; CPT 22612; principal; 2021-12-12 09:25)
DX: M48.062 Spinal stenosis, lumbar region with neurogenic claudication (principal); Z98.1 Arthrodesis status; Z79.891 Long term (current) use of opiate analgesic; Z79.51 Long term (current) use of inhaled steroids
CPT/HCPCS: 51702; 72100; 76000; 80048; 94640; 96372; 97116; 97161; 97530; C1713; C9359; J0330; J1100; J1170; J1644; J1650; J1885; J2405; J2704; J2710; J3010; J3370; J3475; J3490; J3535; J7030; Q0163

== ENCOUNTER → 2021-12-20 13:42 | Outpatient (BNVA) | payer MEDICARE, SELFPAY | PROVIDERS: PCP Family Medicine; Visit Provider Orthopaedic Surgery | DX: Z47.89 Encounter for other orthopedic aftercare (principal); Z98.890 Other specified postprocedural states; Z98.1 Arthrodesis status | CPT/HCPCS: 99024 ==

== ENCOUNTER → 2021-12-29 10:37 | Outpatient (BNVA) | payer MEDICARE, SELFPAY | PROVIDERS: PCP Family Medicine; Visit Provider Orthopaedic Surgery | DX: Z47.89 Encounter for other orthopedic aftercare (principal); Z98.890 Other specified postprocedural states; Z98.1 Arthrodesis status | CPT/HCPCS: 99024 ==

== ENCOUNTER → 2022-01-26 10:19 | Outpatient (BNVA) | payer MEDICARE, SELFPAY | PROVIDERS: PCP Family Medicine; Visit Provider Orthopaedic Surgery | DX: Z98.1 Arthrodesis status (principal); Z47.89 Encounter for other orthopedic aftercare | CPT/HCPCS: 72100; 99024 ==

== ENCOUNTER → 2022-02-02 08:30 | Outpatient (BNVA) | payer MEDICARE, SELFPAY | PROVIDERS: PCP Family Medicine; Visit Provider Orthopaedic Surgery | DX: R52 Pain, unspecified (principal); M47.812 Spondylosis without myelopathy or radiculopathy, cervical region | CPT/HCPCS: 72050; 73130; 99214 ==

== ENCOUNTER → 2022-02-16 11:46 | Outpatient (BNVA) | payer MEDICARE, SELFPAY | PROVIDERS: PCP Family Medicine; Visit Provider Physician Assistant | DX: Z47.89 Encounter for other orthopedic aftercare (principal); Z98.1 Arthrodesis status | CPT/HCPCS: 72100; 99024 ==

== ENCOUNTER → 2022-03-09 10:24 | Outpatient (BNVA) | payer MEDICARE, SELFPAY | PROVIDERS: PCP Family Medicine; Visit Provider Physician Assistant | DX: Z47.89 Encounter for other orthopedic aftercare (principal); Z98.1 Arthrodesis status | CPT/HCPCS: 72100; 99024 ==

== ENCOUNTER → 2022-04-03 15:15 | Outpatient (BNVA) | payer MEDICARE, SELFPAY | PROVIDERS: PCP Family Medicine; Visit Provider Specialist | DX: S66.801A Unspecified injury of other specified muscles, fascia and tendons at wrist and hand level, right hand, initial encounter (principal); W19.XXXA Unspecified fall, initial encounter | CPT/HCPCS: 73130; 99203 ==

== ENCOUNTER → 2022-04-25 14:23 | Outpatient (BNVA) | payer MEDICARE, SELFPAY | PROVIDERS: PCP Family Medicine; Visit Provider Orthopaedic Surgery | DX: M48.02 Spinal stenosis, cervical region (principal) | CPT/HCPCS: 99213; 99214 ==

== ENCOUNTER → 2022-05-24 09:57 | Outpatient (BNVA) | payer MEDICARE, SELFPAY | PROVIDERS: PCP Family Medicine; Visit Provider Anesthesiology Pain Medicine | DX: M50.90 Cervical disc disorder, unspecified, unspecified cervical region (principal); M54.16 Radiculopathy, lumbar region; M79.601 Pain in right arm; M79.602 Pain in left arm | CPT/HCPCS: 99204 ==

== ENCOUNTER → 2022-05-29 15:36 | Outpatient (BNVA) | payer MEDICARE, SELFPAY | PROVIDERS: PCP Family Medicine; Visit Provider Nurse Practitioner Family | DX: R07.81 Pleurodynia (principal) | CPT/HCPCS: 71100 ==

== ENCOUNTER → 2022-06-27 09:12 | Outpatient (BNVA) | payer MEDICARE, SELFPAY | PROVIDERS: PCP Family Medicine; Visit Provider Physician Assistant | DX: Z98.1 Arthrodesis status (principal) | CPT/HCPCS: 72100; 99213 ==

== ENCOUNTER 2022-06-29 06:00 | Outpatient (RCR) | payer MEDICARE, SELFPAY | END 2022-07-25 23:59 | disposition home or self-care (01) | LOC: MPT 06:00 | PROVIDERS: PCP Family Medicine; Visit Provider Anesthesiology Pain Medicine | DX: M50.90 Cervical disc disorder, unspecified, unspecified cervical region (principal) | CPT/HCPCS: 97110; 97140; 97162; G0283 ==

== ENCOUNTER → 2022-07-11 08:39 | Outpatient (BNVA) | payer MEDICARE, SELFPAY | PROVIDERS: PCP Family Medicine; Visit Provider Orthopaedic Surgery | DX: M54.9 Dorsalgia, unspecified (principal); Z98.1 Arthrodesis status | CPT/HCPCS: 99214 ==

== ENCOUNTER 2022-07-26 06:00 | Outpatient (RCR) | payer MEDICARE, SELFPAY | END 2022-08-16 23:59 | disposition home or self-care (01) | LOC: MPT 06:00 | PROVIDERS: PCP Family Medicine; Visit Provider Anesthesiology Pain Medicine | DX: M50.90 Cervical disc disorder, unspecified, unspecified cervical region (principal) | CPT/HCPCS: 97110; 97140; G0283 ==

== ENCOUNTER 2022-08-08 12:44 | Outpatient (CLI) | payer MEDICARE, SELFPAY ==
--- NOTE | 2022-08-08 13:00 | MR_ITS ---
WS: [id number] MRI LUMBAR SPINE NONCONTRAST TECHNIQUE: Sagittal T1, T2 and STIR imaging. Axial T1 and T2 imaging. CLINICAL INFORMATION: back pain COMPARISON: MRI August 10, 2021 FINDINGS: Mild lumbar curve. No acute compression. Prior postoperative changes pedicle screw fixation L4-S1. An terior lumbar fusion L5-S1. Edema involving the S4 sacral segment suspicious for nondisplaced fractur e. Small amount of edema in the S3 sacral segment fracture. Recommend correlation for recent trauma a nd sacral pain. Edema slightly extends into the sacral ala bilaterally. L1-L2: Mild facet arthropathy. Spinal canal and foramen are patent. L2-L3: Mild annular bulging. Tiny shallow central protrusion. Slight effacement of ventral thecal sac . Mild facet arthropathy. Spinal canal and foramen are patent. L3-L4: Mild annular bulging. Slight effacement of ventral thecal sac. Slight narrowing of the LEFT savage barticular recess. Mild LEFT and no significant RIGHT foraminal narrowing. Mild facet arthropathy. L4-L5: Prior postoperative changes decompressive laminectomies L4 with pedicle screw fixation and int erbody fusion. Foramen are patent. Spinal canal is patent. L5-S1: Interbody fusion graft. Osteophytic ridging. Slight impingement on the LEFT subarticular reces s and traversing LEFT S1 nerve root. Foramen are patent. Simple RIGHT renal cyst. MR/MR lumbar spine wo con* [id number] IMPRESSION: 1. Edema at the S3-S4 sacral segment more prominent at S4 suspicious for small nondisplaced fractures. Correlation with recent fall. Recommend correlation wi th sacral pain. This was not included on the prior study in 2019. This can be f urther evaluated with sacral MRI. 2. Pedicle screw fixation L4-S1. Anterior fusion L5-S1. Pedicle screw fixation is new compared to previous. No significant central canal stenosis. Laminectom y defects lower lumbar spine. 3. Osteophytic ridging L5-S1 with slight effacement of the ventral thecal sac. Minimal narrowing of the LEFT subarticular recess. 4. Mild LEFT L5-S1 foraminal narrowing. No significant nerve root impingement. 5. No other remarkable findings.
== END 2022-08-08 12:45 | disposition home or self-care (01) ==
PROVIDERS: PCP Family Medicine; Visit Provider Orthopaedic Surgery
DX: R60.0 Localized edema (principal); M25.78 Osteophyte, vertebrae
CPT/HCPCS: 72148

== ENCOUNTER → 2022-08-31 09:33 | Outpatient (BNVA) | payer MEDICARE, SELFPAY | PROVIDERS: PCP Family Medicine; Visit Provider Orthopaedic Surgery | DX: Z47.89 Encounter for other orthopedic aftercare (principal); Z98.1 Arthrodesis status | CPT/HCPCS: 72040; 72100; 99214 ==

== ENCOUNTER 2023-02-10 10:47 | Observation (INO) | payer MEDICARE, SELFPAY ==
[2023-02-10] VITALS (79 sets, daily range): BP systolic 103–187; BP diastolic 71–97; PULSE 48–96; RESP 10–27; TEMP 36.3; O2SAT 95–100; BMI 24.8
--- NOTE | 2023-02-10 11:00 | ECG_ITS ---
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 Measurements Intervals Fitzgerald Rate: 59 P: 150 RI: 154 QRS: -23 QRSD: 100 T: -19 QT: 414 QTc: 411 Interpretive Statements SINUS BRADYCARDIA LOW QRS VOLTAGE IN EXTREMITY LEADS [QRS DEFLECTION < 0.5 mV IN LIMB LEADS] INFERIOR MYOCARDIAL INFARCTION , OF INDETERMINATE AGE [40+ ms Q WAVE AND/OR ST/T ABNORMALITY IN II/aVF] Compared to ECG 02/10/2023 13:10:33 Low QRS voltage now present Myocardial infarct finding now present Electronically Signed On 02-10-2023 23:25:10 CDT by Radha Barrett M.D. [id number]
--- NOTE | 2023-02-10 11:00 | XRR_ITS ---
PROCEDURE INFORMATION: Exam: XR Chest Exam date and time: 02/10/2023 11:28 AM Age: 62 years old Clinical indication: Pain; Chest pressure; Additional info: Chest pain TECHNIQUE: Imaging protocol: Radiologic exam of the chest. Views: 1 view. COMPARISON: 1. CR XR chest 1V portable [id number] 06/09/2021 2:38 PM 2. CR XR ribs RT 2V* [id number] 05/29/2022 3:47 PM 3. CR XR cervical spine 3V* [id number] 08/31/2022 9:33 AM FINDINGS: Lungs: Unremarkable. No consolidation. Pleural spaces: Unremarkable. No pleural effusion. No pneumothorax. Heart/Mediastinum: Unremarkable. No cardiomegaly. Bones/joints: No acute fracture. Partially visualized lower cervical spine fusion hardware. XR/XR chest 1V portable [id number] IMPRESSION: No acute findings.
--- NOTE | 2023-02-10 11:01 | W.ED.CHESTPA ---
HPI - Chest Pain General: Chief Complaint: Chest Pain Stated Complaint: chest pain/SOB Time Seen by Provider: 02/10/23 10:59 Source: patient Mode of arrival: ambulatory History of Present Illness: 62-year-old male presents emergency room with a complaint of chest pain for the last month. Initially began with exertion when he stopped and rest it would go away after a period of time he states sometimes it took as much as an hour before completely resolved. Becoming more and more frequent to the point that he decreased his activities and stop doing any exertional activities which was bring it on. This morning it woke him up from sleep at rest was accompanied by shortness of breath at its worst it was a 6-7 of 10 and is a 3 of 10 at this time. Patient is a former smoker quit several years ago is not diabetic is a history hypertension hyperlipidemia many years ago he states he had a stress test which she was told was normal MD complaint: chest pain Onset (ago): month(s) Timing of current episode: episodic Prior episodes: Yes Onset: during rest Pain location: left chest Severity: severe Quality: aching and heaviness Relieving factors: rest Exacerbating factors: exertion Associated symptoms: Deny abdominal pain, diaphoresis, dyspnea, fever(s), leg edema, nausea, palpitations, sense of impending doom, syncope or vomiting Treatment prior to arrival: aspirin Review of Systems Const: Denies: fever(s) or diaphoresis ENMT: Denies: throat pain, ear or mastoid pain, nasal discharge or nasal congestion Card: Reports: chest pain and dyspnea on exertion; Denies: palpitations, edema, swelling of feet/ankles, syncope or orthopnea Resp: Denies: dyspnea GI: Denies: abdominal pain, nausea or vomiting : Denies: flank pain, dysuria, urinary frequency or urinary urgency Skin/Breast: Denies: rash or pruritus PFSH ED PFSH: Medical History (Updated 02/10/23 @ 12:33 by Jerardo Leiva DO) Cervical spondylosis with radiculopathy HTN (hypertension) Surgical History (Updated 02/10/23 @ 11:02 by Jerardo Leiva DO) Status post lumbar spinal fusion Social History Smoking and tobacco status: never smoked Physical Exam Const: GENERAL APPEARANCE: cooperative and comfortable ORIENTATION/CONSCIOUSNESS: Yes awake, Yes oriented to person, Yes oriented to place and Yes oriented to time HENMT: COMMON NORMALS: normocephalic, atraumatic and hearing grossly normal bilaterally HEAD & SCALP: normocephalic and atraumatic Resp: COMMON NORMALS: normal respiratory effort, No retractions, No use of accessory muscles and clear to auscultation bilaterally AUSCULTATION: clear to auscultation bilaterally Cardio: COMMON NORMALS: regular rate, regular rhythm and No murmurs present (Cardio) RATE: regular rate RHYTHM: regular rhythm GI: COMMON NORMALS: Soft to palpation and No hepatosplenomegaly present AUSCULTATION: Yes normoactive bowel sounds PALPATION: Yes Soft to palpation, No Tenderness to palpation present (GI), No Guarding due to palpation present (GI) and Yes No hepatosplenomegaly present Extremity: COMMON NORMALS: normal to inspection, capillary refill normal, no clubbing, cyanosis or edema, no calf tenderness and no pedal edema Neuro: SENSORIUM/ORIENTATION: Yes oriented to person, Yes oriented to place and Yes oriented to time Skin: COMMON NORMALS: no rashes or lesions noted GENERAL SKIN EXAM: no rashes or lesions noted Course Vital Signs: Vital signs: Vital Signs Pulse Rate 96 02/10/23 12:19 Respiratory Rate 16 02/10/23 12:19 Blood Pressure 146/83 02/10/23 12:19 Pulse Oximetry 97 02/10/23 12:19 Oxygen Delivery Me thod Room Air 02/10/23 12:19 MDM - Chest Pain Medical Decision Making Patient had chest pain after arriving was started on nitro and heparin also loaded with Plavix given his progressive angina symptoms to the point of an unstable angina in this morning. He is feeling somewhat better. He also noted his father of heart disease at age 60. Discussed with hospitalist will admit we will also consult cardiology discussed Dr. Guillermo and she plans to see the patient. Medical Records I reviewed the patient's medical records. Lab Data I reviewed the patient's lab results. 02/10/23 11:15 02/10/23 11:15 Radiology Impressions Chest X-Ray 02/10/23 11:00 IMPRESSION: No acute findings. Laboratory Results WBC 4.5 10^3/uL (4.0-10.0) 02/10/23 11:15 RBC 5.06 10^6/uL (4.1-5.3) 02/10/23 11:15 Hgb 14.5 g/dL (11.7-16.6) 02/10/23 11:15 Hct 43.8 % (42.0-52.0) 02/10/23 11:15 MCV 86.6 fl (80-94) 02/10/23 11:15 MCH 28.7 pg (28.0-34.0) 02/10/23 11:15 MCHC 33.1 g/dL (30.0-36.0) 02/10/23 11:15 RDW 13.1 % (12.1-15.1) 02/10/23 11:15 Plt Count 278 10^3/cmm (130-400) 02/10/23 11:15 MPV 8.8 fL (7.4-10.4) 02/10/23 11:15 Neut % (Auto) 67.9 % 02/10/23 11:15 Lymph % (Auto) 24.3 % 02/10/23 11:15 Perkins % (Auto) 7.0 % 02/10/23 11:15 Eos % (Auto) 0.2 % 02/10/23 11:15 Baso % (Auto) 0.4 % 02/10/23 11:15 Neut # (Auto) 3.02 10^3/uL (1.8-7.7) 02/10/23 11:15 Lymph # (Auto) 1.1 10^3/uL (0.8-4.8) 02/10/23 11:15 Perkins # (Auto) 0.3 10^3/uL (0.2-0.9) 02/10/23 11:15 Eos # (Auto) 0.0 10^3/uL (0.0-0.8) 02/10/23 11:15 Baso # (Auto) 0.0 10^3/uL (0.0-0.1) 02/10/23 11:15 Nucleated RBC % (auto) 0 % 02/10/23 11:15 Nucleated RBCs # 0.0 /100WBC 02/10/23 11:15 Sodium 140 mmol/L (136-145) 02/10/23 11:15 Potassium 3.7 mmol/L (3.5-5.1) 02/10/23 11:15 Chloride 101 mmol/L (98-107) 02/10/23 11:15 Carbon Dioxide 26 mmol/L (22-29) 02/10/23 11:15 Anion Gap 16.7 (5-19) 02/10/23 11:15 BUN 15 mg/dL (8-23) 02/10/23 11:15 Creatinine 0.7 mg/dL (0.7-1.2) 02/10/23 11:15 GFR Calculation 114.3 mL/min (90-130) 02/10/23 11:15 Glucose 95 mg/dL (65-115) 02/10/23 11:15 Calculated Osmolality 291 mOsm/kg (285-295) 02/10/23 11:15 Calcium 9.8 mg/dL (8.5-10.5) 02/10/23 11:15 Total Bilirubin 0.3 mg/dL (0.15-1.2) 02/10/23 11:15 AST 14 U/L (0-40) 02/10/23 11:15 ALT 14 U/L (0-41) 02/10/23 11:15 Alkaline Phosphatase 59 U/L (40-130) 02/10/23 11:15 Troponin T Baseline 9 ng/L (0-15) 02/10/23 11:15 Total Protein 7.8 g/dL (6.6-8.7) 02/10/23 11:15 Albumin 4.9 g/dL (3.5-5.2) 02/10/23 11:15 Globulin 2.9 g/dL (1.3-4.6) 02/10/23 11:15 Discharge Plan Discharge Patient Disposition: Admitted As Inpatient Clinical Impression: Unstable angina pectoris, HTN (hypertension), Hyperlipidemia Condition: Stable Coding Level of Care Code ED Machinist Class B for Dionne Marie
[2023-02-10] MEDS: clopidogrel 300 mg Tablet 600 MG PO (11:36)
[2023-02-10] MEDS: heparin 5,000 unit/mL INJ 1 mL IV (11:38)
[2023-02-10] MEDS: nitroglycerin drip 50 MG/250 ML PREMIX IV (11:38)
[2023-02-10 11:52] LABS: Alanine Aminotransferase 14 U/L (0-41); Albumin Level 4.9 g/dL (3.5-5.2); Alkaline Phosphatase 59 U/L (40-130); Anion Gap 16.7 (5-19); Aspartate Amino Transferase 14 U/L (0-40); Blood Urea Nitrogen 15 mg/dL (8-23); Calcium 9.8 mg/dL (8.5-10.5); Carbon Dioxide 26 mmol/L (22-29); Chloride 101 mmol/L (98-107); Globulin 2.9 g/dL (1.3-4.6); Glomerular Filtration Rate 114.3 mL/min (90-130); Glucose 95 mg/dL (65-115); Osmolality Calculated 291 mOsm/kg (285-295); Potassium 3.7 mmol/L (3.5-5.1); Sodium 140 mmol/L (136-145); Total Bilirubin 0.3 mg/dL (0.15-1.2); Total Protein 7.8 g/dL (6.6-8.7); Troponin(5th) Baseline 9 ng/L (0-15)
[2023-02-10] MEDS: heparin drip 25,000 UNIT/500 ML PREMIX 21 UNIT IV (11:53)
[2023-02-10 11:57] LABS: Basophils % 0.4 %; Eosinophils % 0.2 %; Hematocrit 43.8 % (42.0-52.0); Hemoglobin 14.5 g/dL (11.7-16.6); Lymphocytes # 1.1 10^3/uL (0.8-4.8); Lymphocytes % 24.3 %; Mean Corpuscular HGB Conc 33.1 g/dL (30.0-36.0); Mean Corpuscular Hemoglobin 28.7 pg (28.0-34.0); Mean Corpuscular Volume 86.6 fl (80-94); Mean Platelet Volume 8.8 fL (7.4-10.4); Monocytes # 0.3 10^3/uL (0.2-0.9); Neutrophils # 3.02 10^3/uL (1.8-7.7); Neutrophils % 67.9 %; Nucleated Red Blood Cells % 0 %; Platelet Count 278 10^3/cmm (130-400); Red Blood Count 5.06 10^6/uL (4.1-5.3); Red Cell Distribution Width 13.1 % (12.1-15.1); White Blood Count 4.5 10^3/uL (4.0-10.0)
--- NOTE | 2023-02-10 12:20 | PC.PHAR ---
PT STATES HE TAKES CARE OF HIS OWN MEDICATIONS-PTS PHARM[facility]Y NOT OPEN ON SATURDAYS TO VERIFY MEDS LAST FILLED-PT STATES HE TAKES LIPITOR 10MG PRN EXT DOESNT SHOW WHEN LAST FILLED-PT STATES HE DOESNT TAKE AMLODIPINE 5MG DAILY MAY TAKE EXTRA TAB PRN EXT SHOWS LAST FILLED 08/30/22 30D/S-PT STATES HE TAKES GABAPENTIN 100MG TID PRN STATES NOT TAKEN IN A MONTH EXT SHOWS LAST FILLED 11/07/22 30D/S-PT STATES HE TAKES LISINOPRIL 10-20MG DAILY EXT SHOWS LAST FILLED 20MG DAILY ON 08/16/22 100D/S-PT STATES HE STOP TAKING BUPROPION SR 100MG QAM FOR 2 WEEKS AND THEN 1 TAB BID STATES NOT TAKEN FOR 3 WEEKS EXT SHOWS LAST FILLED 01/29/23 30D/S-NOTES ARE MADE IN THE PHARMACY COMMENTS
--- NOTE | 2023-02-10 13:00 | ECG_ITS ---
[facility] Test Date: 2023-02-10 Pat Name: Nicolas Garcia Department: Room: Gender: Male Skid Strapper: : 1960 Requested By: Jerardo Martin Order Number: [id number] Connor MD: Radha Barrett M.D. Measurements Intervals Randolph Rate: 56 P: 51 NE: 153 QRS: 7 QRSD: 97 T: 21 QT: 397 QTc: 384 Interpretive Statements SINUS BRADYCARDIA Compared to ECG 06/09/2021 15:15:03 Sinus rhythm no longer present Short NE interval no longer present Electronically Signed On 02-10-2023 14:56:56 CDT by Rahda Barrett M.D. [id number]
[2023-02-10 14:52] LABS: Troponin 5 2HR 7.42 ng/L (0-15); Troponin 5 2HR Delta -1.58 ABS# (0-10)
--- NOTE | 2023-02-10 14:54 | PM.HP ---
Providers/Chief Complaint Admitting Physician: Curt Peña MD Primary Care Provider: Cecelia Maloney DO Chief Complaint: chest pain/SOB History of Present Illness Nicolas Garcia is a 62 year old male with a past medical history of hypertension, chronic low back pain on oxycodone, who presents to [facility] for chest pain. Patient tells me that he has been having chest pain for a few weeks now, chest pain is substernal, radiating to the left arm, associate with shortness of breath lightheadedness and dizziness, associated with exertion, associated with physical activity. Denies any nausea, no vomiting. No syncope. He has a prior history of smoking. He does report that he had a stress test over 15 years ago which was of normal limits. Does have a family history of CAD in his father in his 60s. Currently chest pain-free on nitro drip, heparin drip, alert oriented x3, following all commands Review of Systems Const: Denies: fever(s) Eyes: Denies: change in vision Card: Reports: chest pain, pre-syncope and dyspnea on exertion GI: Denies: abdominal pain Medications/Allergies Home Medications Medication Instructions Recorded Confirmed Last Taken Type atorvastatin 10 mg tablet 10 mg PO DAILY PRN UNKNOWN 06/10/21 02/10/23 12/11/21 History fluticasone propionate 50 1 spray intranasal QAM 11/08/21 02/10/23 12/11/21 History mcg/actuation nasal spray,suspension (Flonase Allergy Relief) albuterol sulfate 90 mcg/actuation 2 puff inhalation QID PRN 12/12/21 02/10/23 12/12/21 History aerosol inhaler Shortness Of Breath cyclobenzaprine 10 mg tablet 10 mg PO TID PRN muscle spasm #60 12/14/21 02/10/23 Unknown Rx tabs gabapentin 100 mg capsule 100 mg PO TID PRN Pain 12/20/21 02/10/23 1 Month Ago History ~01/10/23 L.acidophil-L.casei-B.bifid-B.longum-FOS 1 cap PO DAILY 02/10/23 02/10/23 Unknown History 2 billion cell-50 mg capsule (Probiotic Blend) Trace Minerals 20 drp PO .UP TO BID 02/10/23 02/10/23 Unknown History acetaminophen 500 mg tablet 500 mg PO BID PRN Pain 02/10/23 02/10/23 Unknown History ascorbic acid (vitamin C) 500 mg 500 mg PO DAILY PRN UNKNOWN 02/10/23 02/10/23 Unknown History tablet (Vitamin C) aspirin 81 mg tablet,delayed 324 mg PO .ONE TIME DOSE 02/10/23 02/10/23 02/10/23 09:30 History release azelastine 137 mcg (0.1 %) nasal 1 spray intranasal QPM 02/10/23 02/10/23 Unknown History spray aerosol calcium carbonate 600 mg-vitamin 1 tab PO BID 02/10/23 02/10/23 Unknown History D3 5 mcg (200 unit) tablet digestive enzymes 1 cap PO DAILY 02/10/23 02/10/23 Unknown History garlic 500 mg capsule 500 mg PO DAILY 02/10/23 02/10/23 Unknown History ibuprofen 200 mg tablet 200 mg PO TID PRN Pain 02/10/23 02/10/23 Unknown History lisinopril 20 mg tablet 10 - 20 mg PO QAM 02/10/23 02/10/23 02/10/23 History 10 MG multivitamin 1 tab PO QAM 02/10/23 02/10/23 02/10/23 History oxycodone 10 mg tablet 10 mg PO TID PRN Pain 02/10/23 02/10/23 02/10/23 06:00 History vitamin C 500 mg-multivitamin with 1 tab PO DAILY 02/10/23 02/10/23 Unknown History minerals chewable tablet (Emergen-C) Allergies Allergy/AdvReac Type Severity Reaction Status Date / Time morphine Allergy ADR-Anxiety Verified 02/10/23 11:05 tramadol Allergy Unknown Verified 02/10/23 11:05 PFSH Acute PFSH: Medical History Cervical spondylosis with radiculopathy HTN (hypertension) Surgical History Status post lumbar spinal fusion Family History Father CAD (coronary artery disease) Social History (Updated 02/10/23 @ 14:56 by Curt Peña MD) Smoking and tobacco status: never smoked Alcohol intake: never Substance/Drug Use: never Vitals/I&O/Wt Last Vital Signs Pulse 55 L 02/10/23 13:45 Resp 19 H 02/10/23 13:45 BP 131/77 02/10/23 13:45 Pulse Ox 98 02/10/23 13:45 O2 Del Method Room Air 02/10/23 12:19 02/09/23 02/10/23 02/10/23 22:59 06:59 14:59 Intake Total 2.1 / 2.1 Balance 2.1 / 2.1 Weight last 48 hrs Weight 74.843 kg Physical Exam Const: COMMON NORMALS: no acute distress and patient oriented x3 GENERAL APPEARANCE: cooperative, well kempt and well developed HENMT: COMMON NORMALS: normocephalic and Normal external nose present HEAD & SCALP: normocephalic FACE & SINUS: normal facial exam NOSE: Normal external nose present Eye: COMMON NORMALS: Equal, round and reactive pupils present, EOMs intact bilaterally, conjunctivae normal and no scleral icterus CONJUNCTIVA: Yes conjunctivae normal PUPIL: Yes Equal, round and reactive pupils present Neck/C-Spine: COMMON NORMALS: full ROM, no lymphadenopathy, no JVD, Thyroid normal and No carotid bruits Lymph: LYMPHATIC: no lymphadenopathy noted Chest: COMMONS NORMALS: normal inspection of the chest Resp: COMMON NORMALS: normal respiratory effort, No retractions, No use of accessory muscles and clear to auscultation bilaterally AUSCULTATION: clear to auscultation bilaterally Cardio: COMMON NORMALS: regular rate, regular rhythm, S1 normal heart sound present, S2 normal heart sound present, No murmurs present (Cardio) and Peripheral pulses 2+ throughout RATE: regular rate RHYTHM: regular rhythm HEART SOUNDS: S1 normal heart sound present and S2 normal heart sound present PERIPHERAL PULSES: Peripheral pulses 2+ throughout GI: COMMON NORMALS: Normal to inspection, nondistended, normoactive bowel sounds present, Soft to palpation and non-tender PALPATION: Yes Soft to palpation and Yes No hepatosplenomegaly present : BLADDER/KIDNEY EXAM: Yes no CVA tenderness Back/Pelvis: COMMON NORMALS: no CVA tenderness Extremity: COMMON NORMALS: normal to inspection, full ROM, no calf tenderness and no pedal edema Neuro: COMMON NORMALS: patient oriented x3, CN's II-XII intact bilaterally, moves all extremities, no focal motor deficits and no sensory deficits noted MENINGEAL SIGNS: Yes no meningeal signs Psych: COMMON NORMALS: mental status grossly normal, Normal thought process present, cooperative and speech normal APPEARANCE: Yes well kempt SPEECH: Yes normal speech THOUGHT PROCESS: Normal thought process present Skin: COMMON NORMALS: turgor normal and no jaundice GENERAL SKIN EXAM: turgor normal Data 02/10/23 11:15 02/10/23 11:15 A&P Assessment and plan (1) Unstable angina pectoris: (2) Hyperlipidemia: (3) HTN (hypertension): Plan Unstable angina -Currently chest pain-free -EKG no acute ST-T wave changes -First troponin 7.42 -Currently on nitro drip -Currently on heparin drip -Loaded with aspirin and Plavix -Continue statin -Hold off on beta-vidhi due to sinus bradycardia -Full code -Heparin drip for DVT prophylaxis -Cardiac echo -Cardiology consulted -Serial EKGs, troponins, telemetry monitoring Attestations Medical Necessity Statement*: Patient requires hospitalization, inpatient, greater than 2 midnights, for chest pain Diagnoses Unstable angina pectoris I20.0 Hyperlipidemia E78.5 HTN (hypertension) I10
--- NOTE | 2023-02-10 15:01 | P.CONIM_ITS ---
Providers/Reason For Consult Consulting Physician/Specialty*: Dr. Barrett, cardiology Reason for Consult*: Chest pain/arm pain Attending Physician: Curt Peña MD Primary Care Provider: Cecelia Maloney DO History of Present Illness History of Present Illness Nicolas Garcia is a 62 year old male past medical history of hypertension, hyperlipidemia chronic back and neck pain and history of smoking presented for evaluation of left arm and left upper chest discomfort. Patient states that for the past month he has been having symptoms of sharp pain in his left arm that extends to left upper chest sometimes with shortness of breath and dizziness on and off. These episodes usually happen with exertion and are relieved by resting and the pain medications that he takes for his back and neck pain. He gives history of what sounds like rheumatic fever in his father who in his 60s from valvular heart disease. No family history of SC, CAD or diabetes mellitus. His last stress test was 15 years ago. No recent cardiac work-up. Patient felt dizzy the night before arrival to the hospital and when he woke up in the morning he continues to have some left arm and chest discomfort described as achiness and decided to come to the ER for further evaluation. Troponin T x3 negative (9--7--9). EKG with sinus rhythm and possible inferior myocardial infarction of indeterminate age. Patient was a started on nitroglycerin drip for elevated blood pressure. Patient time of evaluation is chest pain-free. Echo with no regional wall motion abnormality and preserved left ventricular systolic function. No fever or chills orthopnea PND or lower extremity swelling. Review of Systems Const: Denies: fever(s) Eyes: Denies: change in vision Card: Reports: chest pain, pre-syncope and dyspnea on exertion GI: Denies: abdominal pain Musc: Reports: neck pain and back pain; Denies: extremity swelling Skin/Breast: Denies: rash Neuro: Denies: headache(s), weakness in extremities, frequent falls or Slurred speech present Psych: Denies: anxiety or depression Endo: Denies: polyuria or polydipsia Jason/Lymph: Denies: easy bleeding or petechiae Medications/Allergies Home Medications Medication Instructions Recorded Confirmed Last Taken Type atorvastatin 10 mg tablet 10 mg PO DAILY PRN UNKNOWN 06/10/21 02/10/23 12/11/21 History fluticasone propionate 50 1 spray intranasal QAM 11/08/21 02/10/23 12/11/21 History mcg/actuation nasal spray,suspension (Flonase Allergy Relief) albuterol sulfate 90 mcg/actuation 2 puff inhalation QID PRN 12/12/21 02/10/23 12/12/21 History aerosol inhaler Shortness Of Breath cyclobenzaprine 10 mg tablet 10 mg PO TID PRN muscle spasm #60 12/14/21 02/10/23 Unknown Rx tabs gabapentin 100 mg capsule 100 mg PO TID PRN Pain 12/20/21 02/10/23 1 Month Ago History ~01/10/23 L.acidophil-L.casei-B.bifid-B.longum-FOS 1 cap PO DAILY 02/10/23 02/10/23 Unknown History 2 billion cell-50 mg capsule (Probiotic Blend) Trace Minerals 20 drp PO .UP TO BID 02/10/23 02/10/23 Unknown History acetaminophen 500 mg tablet 500 mg PO BID PRN Pain 02/10/23 02/10/23 Unknown History ascorbic acid (vitamin C) 500 mg 500 mg PO DAILY PRN UNKNOWN 02/10/23 02/10/23 Unknown History tablet (Vitamin C) aspirin 81 mg tablet,delayed 324 mg PO .ONE TIME DOSE 02/10/23 02/10/23 02/10/23 09:30 History release azelastine 137 mcg (0.1 %) nasal 1 spray intranasal QPM 02/10/23 02/10/23 Unknown History spray aerosol calcium carbonate 600 mg-vitamin 1 tab PO BID 02/10/23 02/10/23 Unknown History D3 5 mcg (200 unit) tablet digestive enzymes 1 cap PO DAILY 02/10/23 02/10/23 Unknown History garlic 500 mg capsule 500 mg PO DAILY 02/10/23 02/10/23 Unknown History ibuprofen 200 mg tablet 200 mg PO TID PRN Pain 02/10/23 02/10/23 Unknown History lisinopril 20 mg tablet 10 - 20 mg PO QAM 02/10/23 02/10/23 02/10/23 History 10 MG multivitamin 1 tab PO QAM 02/10/23 02/10/23 02/10/23 History oxycodone 10 mg tablet 10 mg PO TID PRN Pain 02/10/23 02/10/23 02/10/23 06:00 History vitamin C 500 mg-multivitamin with 1 tab PO DAILY 02/10/23 02/10/23 Unknown History minerals chewable tablet (Emergen-C) Allergies Allergy/AdvReac Type Severity Reaction Status Date / Time morphine Allergy ADR-Anxiety Verified 02/10/23 11:05 tramadol Allergy Unknown Verified 02/10/23 11:05 Current Medications Generic Name Dose Route Start Last Admin Trade Name Freq PRN Reason Stop Dose Admin Heparin Sodium (Porcine) 0 unit 02/10/23 11:12 02/10/23 11:38 Heparin 5,000 Unit/Ml Inj 1 Ml IV 5,000 unit PRN PRN Administration Heparin weight-base protocol Protocol Nitroglycerin/Dextrose 50 mg in 250 mls @ 0 mls/hr 02/10/23 11:15 02/10/23 12:20 Nitroglycerin Drip IV 15 mcg/min .Q0M GUS 4.5 mls/hr Titration Protocol Per Protocol Heparin Sodium/Sodium Chloride 25,000 unit in 500 mls @ 0 mls/hr 02/10/23 11:15 02/10/23 11:53 Heparin Drip IV 14.03 unit/kg/hr .Q0M GUS 21 mls/hr Administration Protocol Per Protocol PFSH Acute PFSH: Medical History Cervical spondylosis with radiculopathy HTN (hypertension) Surgical History Status post lumbar spinal fusion Family History Father CAD (coronary artery disease) Social History Smoking and tobacco status: never smoked Alcohol intake: never Substance/Drug Use: never Vitals/I&O/Wt Last Vital Signs Pulse 55 L 02/10/23 13:45 Resp 19 H 02/10/23 13:45 BP 131/77 02/10/23 13:45 Pulse Ox 98 02/10/23 13:45 O2 Del Method Room Air 02/10/23 12:19 02/10/23 02/10/23 02/10/23 06:59 14:59 22:59 Intake Total 2.1 / 2.1 Balance 2.1 / 2.1 Weight last 48 hrs Weight 165 lb Physical Exam Narrative: GENERAL: Averagely built and averagely nourished in no acute distress HEENT: Extraocular movement intact. No pallor or icterus. NECK: central trachea, No JVD. No carotid bruit. CARDIOVASCULAR SYSTEM: S1-S2 regular. No S3 or S4 present. No murmur rubs or gallops. RESPIRATORY SYSTEM: Chest clear to auscultation. No wheezes rhonchi or rubs heard. No use of accessory muscles. ABDOMEN: Soft, nontender and nondistended. Normal bowel sounds present. EXTREMITIES: No cyanosis or edema. No signs of chronic venous insufficiency. 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 No focal neurological deficits. SKIN: Normal turgor and temperature. PSYCH: Normal insight and judgment. Data 02/11/23 03:37 02/11/23 03:37 A&P Assessment and plan (1) Chest pain: CAD Risk factor of hypertension hyperlipidemia, age. -No significant EKG changes and no regional wall motion abnormality on echocardiogram. -will plan for stress test on Sunday and further management based on that (2) HTN (hypertension): (3) Hyperlipidemia: Plan Chronic back and neck pain on chronic opioid Thank you for allowing me to participate in patient's care. Please feel free to call with questions or concerns Coding Level of Care Code 19480 Diagnoses Chest pain R07.9 HTN (hypertension) I10 Hyperlipidemia E78.5
--- NOTE | 2023-02-10 15:33 | USCV_ITS ---
Nicolas Garcia Age: 62 Gender: M : 1960 Exam Date: 02/10/2023 16:39 Ordering Phys: Curt Peña MD Technologist: Max Isaacs [place] [facility] [place]: Shortness of breath BP: 139 / 71 HR: 66 Rhythm: Sinus Technical Quality: Adequate MEASUREMENTS (Male / Female) Normal Values 2D ECHO LVOT Diameter 2.1 cm LV Ejection Fraction MOD 2C 61.9 % LV Ejection Fraction 2C AL 63.5 % LA Diameter 3.1 cm LA Width 3.0 cm LA Height 4.8 cm RA Width 4.7 cm RA Height 4.6 cm Aorta at Sinotubular Diameter 2.4 cm IVC Diameter 1.5 cm M-MODE Aortic Annulus Diameter 2.5 cm LA Ao Ratio MM 1.2 MV E Point Septal Separation 0.5 cm DOPPLER AV Peak Velocity 122.7 cm/s LVOT Peak Velocity 90.0 cm/s AV Area Cont Eq vti 2.3 cm squared AV Area Cont Eq pk 2.4 cm squared MV Peak Velocity 96.0 cm/s MV Area PHT 5.5 cm squared Mitral E to A Ratio 1.2 MV E' Velocity 44.0 cm/s Mitral E to MV E' Ratio 5.5 Mitral E to LV E' Lateral Ratio 4.7 Mitral E to LV E' Septal Ratio 6.7 TR Peak Velocity 360.5 cm/s TR Peak Gradient 52.0 mmHg TR Mean Velocity 283.3 cm/s TR Mean Gradient 35.6 mmHg TR Velocity Time Integral 97.0 cm Right Atrial Pressure 3.0 mmHg Pulmonary Artery Systolic Pressu 55.0 mmHg PV Peak Velocity 90.7 cm/s RV Acceleration Time 0.1 s RV Ejection Time 0.3 s RV AcT/ET 0.4 FINDINGS Left Ventricle Normal left ventricular size, systolic function and wall thickness, with no regional wall motion abnormalities. Left ventricular ejection fraction is estimated at 55 %. Normal diastolic function. Right Ventricle Normal right ventricular size and systolic function. RVSP could not be calculated due to incomplete tricuspid regurgitation velocity profile. Right Atrium Normal right atrial size. Left Atrium Normal left atrial size. Mitral Valve Structurally normal mitral valve. No mitral valve stenosis. Trace mitral valve regurgitation. Aortic Valve Structurally normal trileaflet aortic valve. No aortic valve stenosis. No aortic valve regurgitation. Tricuspid Valve Structurally normal tricuspid valve. No tricuspid valve stenosis. Trace tricuspid valve regurgitation. Pulmonic Valve Structurally normal pulmonic valve. No pulmonary valve stenosis. No significant pulmonary valve regurgitation. Pericardium No pericardial effusion. Aorta Normal size aortic root and proximal ascending aorta. IVC Normal IVC dimension with >50% respiratory change of the inferior vena cava. CONCLUSIONS 1. Normal left ventricular size, systolic function and wall thickness, with no regional wall motion abnormalities. Left ventricular ejection fraction is estimated at 55 %. Normal diastolic function. 2. No significant valvular abnormality. 3. No prior similar studies to compare. Radha Barrett MD (Electronically Signed) Final Date: 11 February 2023 12:02 S
[2023-02-10] MEDS: pantoprazole 40 mg SDV IVP (16:43)
--- NOTE | 2023-02-10 17:17 | ECG_ITS ---
[facility] Test Date: 2023-02-10 Pat Name: Nicolas Garcia Department: Room: 111 Gender: Male Genetic Technologist: : 1960 Requested By: Jerardo Maritn Order Number: [id number] Connor MD: Radha Barrett M.D. Measurements Intervals [place] Rate: 64 P: 51 TN: 155 QRS: 4 QRSD: 98 T: 16 QT: 407 QTc: 420 Interpretive Statements SINUS RHYTHM Compared to ECG 02/10/2023 16:15:03 Sinus bradycardia no longer present Myocardial infarct finding no longer present Electronically Signed On 02-10-2023 23:26:54 CDT by Radha Barrett M.D. [id number]
[2023-02-10] MEDS: oxyCODONE 5 mg IR Tab/Cap 10 MG PO (18:47)
[2023-02-10] MEDS: acetaminophen 500 mg Tablet PO (18:47)
[2023-02-10 19:43] LABS: Partial Thromboplastin Time 101.9 SECONDS (23.9-36.7)
[2023-02-10 19:59] LABS: Troponin 5 6HR 9.17 ng/L (0-15); Troponin 5 6HR Delta 0.17 ng/L (0-12)
[2023-02-11] VITALS (10 sets, daily range): BP systolic 123–142; BP diastolic 71–84; PULSE 61–95; RESP 14–28; TEMP 36.4–36.9; O2SAT 95–96
[2023-02-11 02:09] LABS: Partial Thromboplastin Time 54.6 SECONDS (23.9-36.7)
[2023-02-11] MEDS: heparin 5,000 unit/mL INJ 1 mL IV ×2 (03:01→14:55)
[2023-02-11] MEDS: multivitamin therapeutic Tablet 1 TAB PO (04:19)
[2023-02-11] MEDS: acetaminophen 500 mg Tablet PO (04:19)
[2023-02-11] MEDS: fluticasone nasal spray 16gm Btl 1 SPRAY INTRANASAL (04:20)
[2023-02-11 04:43] LABS: Basophils % 0.4 %; Eosinophils # 0.3 10^3/uL (0.0-0.8); Hematocrit 39.2 % (42.0-52.0); Hemoglobin 12.8 g/dL (11.7-16.6); Lymphocytes # 1.7 10^3/uL (0.8-4.8); Lymphocytes % 32.7 %; Mean Corpuscular HGB Conc 32.7 g/dL (30.0-36.0); Mean Corpuscular Hemoglobin 28.3 pg (28.0-34.0); Mean Corpuscular Volume 86.7 fl (80-94); Mean Platelet Volume 9.1 fL (7.4-10.4); Monocytes # 0.5 10^3/uL (0.2-0.9); Monocytes % 9.4 %; Neutrophils # 2.73 10^3/uL (1.8-7.7); Neutrophils % 52.1 %; Nucleated Red Blood Cells % 0 %; Platelet Count 239 10^3/cmm (130-400); Red Blood Count 4.52 10^6/uL (4.1-5.3); Red Cell Distribution Width 13.1 % (12.1-15.1); White Blood Count 5.2 10^3/uL (4.0-10.0)
[2023-02-11 05:10] LABS: Estmated Average Glucose 114; Hemoglobin A1C 5.6 % (4.0-6.0)
[2023-02-11 05:12] LABS: Alanine Aminotransferase 11 U/L (0-41); Albumin Level 3.8 g/dL (3.5-5.2); Alkaline Phosphatase 47 U/L (40-130); Anion Gap 12.3 (5-19); Aspartate Amino Transferase 12 U/L (0-40); Blood Urea Nitrogen 14 mg/dL (8-23); Calcium 8.8 mg/dL (8.5-10.5); Carbon Dioxide 27 mmol/L (22-29); Chloride 104 mmol/L (98-107); Chol HDL Ratio 4.82 mg/dL (1.0-5.00); Cholesterol 217 mg/dL (0-200); Globulin 2.3 g/dL (1.3-4.6); Glucose 81 mg/dL (65-115); HDL Cholesterol 45 mg/dL (60-100); LDL Cholesterol Calculated 141 mg/dL (50-129); LDL HDL Ratio 3.13 RATIO (0.00-3.22); Magnesium 2.1 mg/dL (1.7-2.3); NT Pro B Type Natriuretic Pept 82 pg/mL (0-125); Osmolality Calculated 288 mOsm/kg (285-295); Potassium 4.3 mmol/L (3.5-5.1); Sodium 139 mmol/L (136-145); Total Bilirubin 0.4 mg/dL (0.15-1.2); Total Protein 6.1 g/dL (6.6-8.7); Triglycerides 157 mg/dL (0-150)
[2023-02-11 09:19] LABS: Partial Thromboplastin Time 72.1 SECONDS (23.9-36.7)
[2023-02-11] MEDS: atorvastatin 40 mg Tablet 20 MG PO (09:40)
[2023-02-11] MEDS: aspirin 81 mg EC Tablet PO (09:40)
[2023-02-11] MEDS: oxyCODONE 5 mg IR Tab/Cap 10 MG PO (09:42)
[2023-02-11] MEDS: heparin drip 25,000 UNIT/500 ML PREMIX 18 UNIT IV (12:31)
--- NOTE | 2023-02-11 13:16 | P.PN_ITS ---
Subjective Subjective: No chest discomfort overnight or this morning. He has been taken of nitroglycerin gtt. Medications: Reviewed: Yes Vitals/I&O/Wt Last Vital Signs Temp 98.4 F 02/11/23 12:00 Pulse 71 02/11/23 12:00 Resp 16 02/11/23 12:00 BP 142/84 02/11/23 12:00 Pulse Ox 95 02/11/23 12:00 O2 Del Method Room Air 02/11/23 12:00 02/10/23 02/11/23 02/11/23 22:59 06:59 14:59 Intake Total 675.55 / 677.65 745.617 / 1423.267 417.45 / 417.45 Output Total 1050 / 1050 400 / 1450 1680 / 1680 Balance -374.45 / -372.35 345.617 / -26.733 -1262.55 / -1262.55 Weight last 48 hrs Weight 172 lb 6.4 oz Weight 168 lb 4 oz Weight 165 lb Physical Exam Narrative: GENERAL: Averagely built and averagely nourished in no acute distress HEENT: Extraocular movement intact. No pallor or icterus. NECK: central trachea, No JVD. No carotid bruit. CARDIOVASCULAR SYSTEM: S1-S2 regular. No S3 or S4 present. No murmur rubs or gallops. RESPIRATORY SYSTEM: Chest clear to auscultation. No wheezes rhonchi or rubs heard. No use of accessory muscles. ABDOMEN: Soft, nontender and nondistended. Normal bowel sounds present. EXTREMITIES: No cyanosis or edema. No signs of chronic venous insufficiency. CONTINUOUS IMPROVEMENT COACH: Patient is alert oriented ?3. No focal neurological deficits. SKIN: Normal turgor and temperature. PSYCH: Normal insight and judgment. Data 02/11/23 03:37 02/11/23 03:37 A&P Assessment and plan (1) Chest pain: There was some concern of unstable angina on admission. Patient complains of achiness in left upper chest and left arm and exertional shortness of breath. Patient is currently on heparin drip. -CAD Risk factor of hypertension hyperlipidemia, age. -No significant EKG changes and no regional wall motion abnormality on echocardiogram. -will plan for stress test on Sunday and further management based on that (2) HTN (hypertension): Start on antihypertensives based on blood pressure. (3) Hyperlipidemia: Plan Chronic back and neck pain on chronic opioid Thank you for allowing me to participate in patient's care. Please feel free to call with questions or concerns Attestations Medical Necessity Statement*: Needs hospital stay for management of chest discomfort and shortness of breath Coding Level of Care Code 91337 Diagnoses Chest pain R07.9 HTN (hypertension) I10 Hyperlipidemia E78.5
--- NOTE | 2023-02-11 14:40 | ECG_ITS ---
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 Interpretive Statements NAME OF STUDY: LEXISCAN SESTAMIBI STRESS TEST INDICATION: Chest Pain; Left Arm Pain PROCEDURE: At the baseline, the blood pressure was 141/75 mmHg, oxygen saturation 97% with a heart rate of 70 beats per min. The electrocardiogram showed sinus rhythm, normal axis with normal ST and T's. The Lexiscan was infused over a period of 20 seconds. A total of 0.4 milligrams of Lexiscan was infused. The stress phase was continued for a total of 5 minutes. Heart rate at the end of the stress phase was 84 bpm, oxygen saturation 98% with a blood pressure 146/79 mmHg. The EKG at the peak infusion revealed sinus rhythm with no significant ST-T wave changes. Sestamibi was injected 20 seconds after the Lexiscan infusion. Blood pressure at the end of the recovery phase was 171/83 mmHg, oxygen saturation 95% with a heart rate of 73 beats per minute. CONCLUSION: 1. Normal EKG response to LexiScan infusion. 2. No LexiScan induced chest pain or cardiac arrhythmia. 3. Normal blood pressure and heart rate response. 4. Sestamibi/sestamibi perfusion scan pending; see separate report. Electronically Signed On 02-12-2023 11:13:57 CDT by Radha Barrett M.D. [id number]
[2023-02-11 14:43] LABS: Partial Thromboplastin Time 51.5 SECONDS (23.9-36.7)
[2023-02-11] MEDS: heparin drip 25,000 UNIT/500 ML PREMIX 20 UNIT IV (14:52)
--- NOTE | 2023-02-11 15:26 | P.PN_ITS ---
Subjective Subjective: Patient was seen this morning, denies any fevers, no chills, no nausea, no vomiting, no chest pain, currently on heparin drip, off nitro drip Vitals/I&O/Wt Last Vital Signs Temp 98.4 F 02/11/23 12:00 Pulse 70 02/11/23 14:00 Resp 16 02/11/23 12:00 BP 142/84 02/11/23 12:00 Pulse Ox 95 02/11/23 12:00 O2 Del Method Room Air 02/11/23 12:00 02/11/23 02/11/23 02/11/23 06:59 14:59 22:59 Intake Total 745.617 / 1423.267 459.75 / 459.75 Output Total 400 / 1450 1680 / 1680 Balance 345.617 / -26.733 -1220.25 / -1220.25 Weight last 48 hrs Weight 78.199 kg Weight 76.317 kg Weight 74.843 kg Physical Exam Const: COMMON NORMALS: no acute distress and patient oriented x3 Resp: COMMON NORMALS: normal respiratory effort, No retractions, No use of acc essory muscles and clear to auscultation bilaterally AUSCULTATION: clear to auscultation bilaterally Cardio: COMMON NORMALS: regular rate, regular rhythm, S1 normal heart sound present and S2 normal heart sound present RATE: regular rate RHYTHM: regular rhythm HEART SOUNDS: S1 normal heart sound present and S2 normal heart sound present GI: COMMON NORMALS: Normal to inspection, nondistended, normoactive bowel sounds present and non-tender Extremity: COMMON NORMALS: no pedal edema Neuro: COMMON NORMALS: patient oriented x3 Psych: COMMON NORMALS: mental status grossly normal Data 02/11/23 03:37 02/11/23 03:37 A&P Assessment and plan (1) Unstable angina pectoris: (2) Hyperlipidemia: (3) HTN (hypertension): Plan Unstable angina -Currently chest pain-free -EKG no acute ST-T wave changes -6-hour troponin 9.1 -Currently off nitro drip -Currently on heparin drip -Loaded with aspirin and Plavix, continue aspirin 81 -Continue statin -Hold off on beta-vidhi due to sinus bradycardia -Full code -Heparin drip for DVT prophylaxis -Cardiac echo 1. Normal left ventricular size, systolic function and wall ?thickness, with no regional wall motion abnormalities. Left ?ventricular ejection fraction is estimated at 55 %. Normal ?diastolic function. ?2. No significant valvular abnormality. ?3. No prior similar studies to compare. -Cardiology consulted -N.p.o. midnight, for stress test tomorrow Attestations Medical Necessity Statement*: Patient requires hospitalization for chest pain Diagnoses Unstable angina pectoris I20.0 Hyperlipidemia E78.5 HTN (hypertension) I10
[2023-02-11] MEDS: pantoprazole 40 mg SDV IVP (17:24)
[2023-02-11 20:50] LABS: Partial Thromboplastin Time 64.5 SECONDS (23.9-36.7)
[2023-02-12] VITALS (9 sets, daily range): BP systolic 146–171; BP diastolic 83–89; PULSE 54–72; RESP 15–23; TEMP 36.5–36.7; O2SAT 94–97
[2023-02-12] MEDS: oxyCODONE 5 mg IR Tab/Cap 10 MG PO ×2 (02:22→11:34)
[2023-02-12] MEDS: acetaminophen 500 mg Tablet PO ×2 (02:23→11:36)
[2023-02-12 04:18] LABS: Basophils % 0.3 %; Eosinophils # 0.2 10^3/uL (0.0-0.8); Eosinophils % 3.2 %; Hematocrit 40.6 % (42.0-52.0); Hemoglobin 13.1 g/dL (11.7-16.6); Lymphocytes # 1.4 10^3/uL (0.8-4.8); Lymphocytes % 23.5 %; Mean Corpuscular HGB Conc 32.3 g/dL (30.0-36.0); Mean Corpuscular Hemoglobin 28.8 pg (28.0-34.0); Mean Corpuscular Volume 89.2 fl (80-94); Mean Platelet Volume 8.6 fL (7.4-10.4); Monocytes # 0.5 10^3/uL (0.2-0.9); Monocytes % 8.4 %; Neutrophils # 3.83 10^3/uL (1.8-7.7); Neutrophils % 64.3 %; Nucleated Red Blood Cells % 0 %; Platelet Count 236 10^3/cmm (130-400); Red Blood Count 4.55 10^6/uL (4.1-5.3); Red Cell Distribution Width 13.1 % (12.1-15.1)
[2023-02-12 04:29] LABS: Partial Thromboplastin Time 63.5 SECONDS (23.9-36.7)
[2023-02-12 04:37] LABS: Alanine Aminotransferase 10 U/L (0-41); Albumin Level 3.9 g/dL (3.5-5.2); Alkaline Phosphatase 48 U/L (40-130); Anion Gap 12.1 (5-19); Aspartate Amino Transferase 10 U/L (0-40); Blood Urea Nitrogen 16 mg/dL (8-23); Carbon Dioxide 27 mmol/L (22-29); Chloride 104 mmol/L (98-107); Globulin 2.3 g/dL (1.3-4.6); Glomerular Filtration Rate 114.3 mL/min (90-130); Glucose 100 mg/dL (65-115); Magnesium 2.1 mg/dL (1.7-2.3); Osmolality Calculated 289 mOsm/kg (285-295); Potassium 4.1 mmol/L (3.5-5.1); Sodium 139 mmol/L (136-145); Total Bilirubin 0.3 mg/dL (0.15-1.2); Total Protein 6.2 g/dL (6.6-8.7)
--- NOTE | 2023-02-12 06:30 | NMCV_ITS ---
NM jakob perf SPECT r/s* [id number] Nicolas Garcia Age: 62 Gender: M : 1960 Exam Date: 02/12/2023 06:27 Ordering Phys: Radha Barrett MD ([email or web address]) Technologist: CLARA Rodríguez Exam Location: [facility] Indications: CHEST PAIN STRESS TEST Please see separate stress test report in [facility] for full findings IMAGE PROTOCOL Rest/Stress 1 Lexiscan Day Radiopharmaceutical Dose (mCi) Administration Site Administered by Rest: Tc-99m 10.9 IV CLARA Oquendo Sestamibi Stress:Tc-99m 32.8 IV CLARA Oquendo Sestamibi Rest: 12-Feb-2023 60 Discovery 630 Stress: 12-Feb-2023 30 Discovery 630 0.4mg Lexiscan. Images obtained in supine and prone position. SPECT RESULTS Technical Quality: Excellent Raw Data Analysis: Normal Image Corrections: No attenuation or motion correction applied Summed Stress Score: 0 Summed Rest Score: 0 Summed Difference Score: 0 PERFUSION FINDINGS SPECT images demonstrate homogeneous tracer distribution throughout the myocardium. FUNCTIONAL RESULTS (calculated via Gated SPECT) Stress Image LV EF (%): 66 Stress EDV (mL):119 TID: 0.96 Stress ESV (mL):40 FUNCTIONAL FINDINGS: The left ventricle is normal in size. Transient Ischemia Dilatation of 0.96. The left ventricular ejection fraction is normal with a value of 66%. There is normal left ventricular wall thickening. Normal end-diastolic and end-systolic volumes. IMPRESSIONS 1. Myocardial perfusion imaging is normal. 2. Overall left ventricular systolic function is normal without regional wall motion abnormalities, LVEF=66%. 3. Normal EKG response to Lexiscan infusion. Refer to separate report for details. 4. Scan indicates low risk for cardiac events. Radha Barrett MD (Electronically Signed) Final Date: 12 February 2023 11:14 S
--- NOTE | 2023-02-12 07:00 | SUR.PREOP ---
Protocol changed to lexiscan d/t physical demands of treadmil.
[2023-02-12] MEDS: regadenoson 0.4 Mg/5 ml Syringe IVP (07:14)
[2023-02-12] MEDS: atorvastatin 40 mg Tablet 20 MG PO (08:52)
[2023-02-12] MEDS: aspirin 81 mg EC Tablet PO (08:52)
[2023-02-12] MEDS: lisinopril 10 mg Tablet PO (09:30)
--- NOTE | 2023-02-12 12:06 | P.DS_ITS ---
Discharge Providers Date of Admission: 02/10/23 15:34 Date of Discharge: February 12, 2023 Attending Provider at Admission: Curt Peña MD Attending Provider at Discharge: Curt Peña MD Primary Care Provider: Cecelia Maloney DO Diagnoses at Discharge Discharge Diagnosis (1) Unstable angina pectoris: Status: Acute (2) Hyperlipidemia: Status: Acute (3) HTN (hypertension): Status: Acute Reason for Visit Reason for Visit: chest pain/SOB Hospital Course Hospital Course Nicolas Garcia is a 62 year old male with a past medical history of hypertension, chronic low back pain on oxycodone, who presents to [facility] for chest pain.? Patient tells me that he has been having chest pain for a few weeks now, chest pain is substernal, radiating to the left arm, associate with shortness of breath lightheadedness and dizziness, associated with exertion, associated with physical activity.? Denies any nausea, no vomiting.? No syncope.? He has a prior history of smoking.? He does report that he had a stress test over 15 years ago which was of normal limits.? Does have a family history of CAD in his father in his 60s.? Currently chest pain-free on nitro drip, heparin drip, alert oriented x3, following all commands Patient was admitted to [facility] for chest pain, managed with heparin drip, nitro drip, clinically monitored, no significant delta troponin, no significant EKG acute ST-T wave changes, remained chest pain-free and weaned off nitro drip cardiac echo CONCLUSIONS ?1. Normal left ventricular size, systolic function and wall ?thickness, with no regional wall motion abnormalities. Left ?ventricular ejection fraction is estimated at 55 %. Normal ?diastolic function. ?2. No significant valvular abnormality. ?3. No prior similar studies to compare. stress test ?IMPRESSIONS ?1. Myocardial perfusion imaging is normal. ?2. Overall left ventricular systolic function is normal without regional wall ?motion abnormalities, LVEF=66%. ?3.? Normal EKG response to Lexiscan infusion.? Refer to separate report for ?details. ?4. Scan indicates low risk for cardiac events. -Patient remained chest pain-free -Patient will be discharged with a close follow-up with primary care provider for blood pressure check -If you were to have any recurrent chest pain please go to emergency room -Please use nitro as prescribed for chest pain -See primary care provider for blood pressure check in 1 week Physical Exam Const: COMMON NORMALS: no acute distress and patient oriented x3 Resp: COMMON NORMALS: normal respiratory effort, No retractions, No use of accessory muscles and clear to auscultation bilaterally AUSCULTATION: clear to auscultation bilaterally Cardio: COMMON NORMALS: regular rate, regular rhythm, S1 normal heart sound present and S2 normal heart sound present RATE: regular rate RHYTHM: regular rhythm HEART SOUNDS: S1 normal heart sound present and S2 normal heart sound present GI: COMMON NORMALS: Normal to inspection, nondistended, normoactive bowel sounds present and non-tender Extremity: COMMON NORMALS: no pedal edema Neuro: COMMON NORMALS: patient oriented x3 Psych: COMMON NORMALS: mental status grossly normal Discharge Data Studies Completed and Pending Completed Studies During Hospitalization Category Date Time Status Sestamibi Stress Test Request Routine Exams 02/11/23 14:40 Completed XR chest 1V portable [id number] Stat Exams 02/10/23 11:00 Completed NM jakob perf SPECT r/s* [id number] Routine Nuc Med 02/12/23 06:30 Completed CV. echo complete* [id number] Routine Ultrasound 02/10/23 15:33 Completed Pending at discharge Category Date Time Status Complete Blood Count w/Auto AM LABS Lab 02/13/23 04:00 Ordered Comprehensive Metabolic Panel AM LABS Lab 02/13/23 04:00 Ordered Magnesium AM LABS Lab 02/13/23 04:00 Ordered PTT [Partial Thromboplastin Time] Timed Lab 02/12/23 16:00 Ordered Radiology Impressions Chest X-Ray 02/10/23 11:00 IMPRESSION: No acute findings. Laboratory Results WBC 6.0 10^3/uL (4.0-10.0) 02/12/23 03:49 RBC 4.55 10^6/uL (4.1-5.3) 02/12/23 03:49 Hgb 13.1 g/dL (11.7-16.6) 02/12/23 03:49 Hct 40.6 % (42.0-52.0) L 02/12/23 03:49 MCV 89.2 fl (80-94) 02/12/23 03:49 MCH 28.8 pg (28.0-34.0) 02/12/23 03:49 MCHC 32.3 g/dL (30.0-36.0) 02/12/23 03:49 RDW 13.1 % (12.1-15.1) 02/12/23 03:49 Plt Count 236 10^3/cmm (130-400) 02/12/23 03:49 MPV 8.6 fL (7.4-10.4) 02/12/23 03:49 Neut % (Auto) 64.3 % 02/12/23 03:49 Lymph % (Auto) 23.5 % 02/12/23 03:49 Hart % (Auto) 8.4 % 02/12/23 03:49 Eos % (Auto) 3.2 % 02/12/23 03:49 Baso % (Auto) 0.3 % 02/12/23 03:49 Neut # (Auto) 3.83 10^3/uL (1.8-7.7) 02/12/23 03:49 Lymph # (Auto) 1.4 10^3/uL (0.8-4.8) 02/12/23 03:49 Hart # (Auto) 0.5 10^3/uL (0.2-0.9) 02/12/23 03:49 Eos # (Auto) 0.2 10^3/uL (0.0-0.8) 02/12/23 03:49 Baso # (Auto) 0.0 10^3/uL (0.0-0.1) 02/12/23 03:49 Nucleated RBC % (auto) 0 % 02/12/23 03:49 Nucleated RBCs # 0.0 /100WBC 02/12/23 03:49 APTT 63.5 SECONDS (23.9-36.7) H 02/12/23 03:49 Sodium 139 mmol/L (136-145) 02/12/23 03:49 Potassium 4.1 mmol/L (3.5-5.1) 02/12/23 03:49 Chloride 104 mmol/L (98-107) 02/12/23 03:49 Carbon Dioxide 27 mmol/L (22-29) 02/12/23 03:49 Anion Gap 12.1 (5-19) 02/12/23 03:49 BUN 16 mg/dL (8-23) 02/12/23 03:49 Creatinine 0.7 mg/dL (0.7-1.2) 02/12/23 03:49 GFR Calculation 114.3 mL/min (90-130) 02/12/23 03:49 Glucose 100 mg/dL (65-115) 02/12/23 03:49 Estimat Average Glucose 114 02/11/23 03:37 Hemoglobin A1c 5.6 % (4.0-6.0) 02/11/23 03:37 Calculated Osmolality 289 mOsm/kg (285-295) 02/12/23 03:49 Calcium 9.0 mg/dL (8.5-10.5) 02/12/23 03:49 Magnesium 2.1 mg/dL (1.7-2.3) 02/12/23 03:49 Total Bilirubin 0.3 mg/dL (0.15-1.2) 02/12/23 03:49 AST 10 U/L (0-40) 02/12/23 03:49 ALT 10 U/L (0-41) 02/12/23 03:49 Alkaline Phosphatase 48 U/L (40-130) 02/12/23 03:49 Troponin T Baseline 9 ng/L (0-15) 02/10/23 11:15 Troponin T 120 Minute 7.42 ng/L (0-15) 02/10/23 13:46 Delta Troponin T -1.58 ABS# (0-10) L 02/10/23 13:46 Troponin T Hi Sens 6Hr 9.17 ng/L (0-15) 02/10/23 18:30 Troponin T Hi Sens 6Hr Delta 0.17 ng/L (0-12) 02/10/23 18:30 NT-Pro-B Natriuret Pep 82 pg/mL (0-125) 02/11/23 03:37 NT-Pro-B Natriuret Pep Cancelled 02/11/23 03:37 Total Protein 6.2 g/dL (6.6-8.7) L 02/12/23 03:49 Albumin 3.9 g/dL (3.5-5.2) 02/12/23 03:49 Globulin 2.3 g/dL (1.3-4.6) 02/12/23 03:49 Triglycerides 157 mg/dL (0-150) H 02/11/23 03:37 Triglycerides Cancelled 02/11/23 03:37 Cholesterol 217 mg/dL (0-200) H 02/11/23 03:37 Cholesterol Cancelled 02/11/23 03:37 LDL Cholesterol, Calc 141 mg/dL (50-129) H 02/11/23 03:37 LDL Cholesterol, Calc Cancelled 02/11/23 03:37 HDL Cholesterol 45 mg/dL (60-100) L 02/11/23 03:37 HDL Cholesterol Cancelled 02/11/23 03:37 LDL/HDL Ratio 3.13 RATIO (0.00-3.22) 02/11/23 03:37 LDL/HDL Ratio Cancelled 02/11/23 03:37 Cholesterol/HDL Ratio 4.82 mg/dL (1.0-5.00) 02/11/23 03:37 Cholesterol/HDL Ratio Cancelled 02/11/23 03:37 TSH 3.90 uIU/mL (0.27-4.20) 02/11/23 03:37 Vitals Last Vital Signs Temp 97.7 F 02/12/23 08:00 Pulse 58 L 02/12/23 08:00 Resp 20 H 02/12/23 11:34 BP 157/88 02/12/23 08:00 Pulse Ox 97 02/12/23 08:00 O2 Del Method Room Air 02/12/23 08:00 Discharge Plan Discharge Patient Disposition: Home Condition: Stable Prescriptions: New nitroglycerin 0.4 mg Tablet, Sublingual 0.4 mg sublingual Q5M PRN (Reason: Chest Pain) 30 Days Qty: 30 0RF Continued fluticasone propionate [Flonase Allergy Relief] 50 mcg/actuation spray,suspension 1 spray intranasal QAM Rx Instructions: administer into each nostril gabapentin 100 mg capsule 100 mg PO TID PRN (Reason: Pain) atorvastatin 10 mg tablet 10 mg PO DAILY PRN (Reason: UNKNOWN) albuterol sulfate 90 mcg/actuation HFA aerosol inhaler 2 puff INHALATION QID PRN (Reason: Shortness Of Breath) cyclobenzaprine 10 mg tablet 10 mg PO TID PRN (Reason: muscle spasm) Qty: 60 0RF multivitamin Tablet 1 tab PO QAM digestive enzymes Capsule 1 cap PO DAILY Rx Instructions: administer with food; swallow whole; do not crush/chew/dissolve/break/cut Calcium + D 600 mg-5 mcg (200 unit) Tablet 1 tab PO BID Tylenol Ex Str Rapid Release 500 mg Tablet 500 mg PO BID PRN (Reason: Pain) garlic 500 mg Capsule 500 mg PO DAILY Vitamin C 500 mg Tablet 500 mg PO DAILY PRN (Reason: UNKNOWN) ibuprofen 200 mg Tablet 200 mg PO TID PRN (Reason: Pain) azelastine 137 mcg (0.1 %) aerosol,spray 1 spray INTRANASAL QPM oxycodone 10 mg tablet 10 mg PO TID PRN (Reason: Pain) Probiotic Blend 2 billion cell-50 mg Capsule 1 cap PO DAILY Rx Instructions: give with meal/snack Emergen-C 500 mg Tablet,Chewable 1 tab PO DAILY Trace Minerals 20 drp PO .UP TO BID Rx Instructions: IN BOTTLE OF WATER Changed lisinopril 20 mg tablet 20 mg PO QAM 30 Days Qty: 30 0RF aspirin 81 mg Tablet,Delayed Release (Dr/Ec) 81 mg PO DAILY 30 Days Qty: 30 0RF Discharge Orders: Discharge Order (Routine); Ordered 02/12/23 Ordered By: Curt Peña Referrals: Cecelia Maloney DO [Primary Care Provider] - 1-3 days Radha Barrett MD [Physician] - 2 weeks Discharge Diet: Cardiac Discharge Activity: Resume usual activity Patient Instructions: Opioid Safety Activity Restrictions/Additional Instructions: - If you have any chest pain please go to emergency room -See primary care provider in this week for blood pressure check Discharge Attestations Time Spent in Discharge Care*: greater than 30 min Quality Metrics Clinical Quality Measures [ No reported AMI, CVA or VTE this stay] Coding Level of Care Code 57330 Total time (in minutes) for Discharge: 45 Diagnoses Unstable angina pectoris I20.0 Hyperlipidemia E78.5 HTN (hypertension) I10
== END 2023-02-12 14:27 | disposition home or self-care (01) ==
LOC: ER 12:53 → CSU 19:23
PROVIDERS: Admitting Provider Family Medicine; Emergency Provider Family Medicine; PCP Family Medicine; Visit Provider Family Medicine
DX: I20.0 Unstable angina (principal); M54.50 Low back pain, unspecified; M54.2 Cervicalgia; G89.29 Other chronic pain; I10 Essential (primary) hypertension; E78.5 Hyperlipidemia, unspecified; Z79.891 Long term (current) use of opiate analgesic; Z79.82 Long term (current) use of aspirin; Z79.899 Other long term (current) drug therapy; Z87.891 Personal history of nicotine dependence; M43.26 Fusion of spine, lumbar region; Z82.49 Family history of ischemic heart disease and other diseases of the circulatory system
CPT/HCPCS: 36415; 71045; 78452; 80053; 80061; 83036; 83735; 83880; 84443; 84484; 85025; 85730; 93005; 93017; 93306; 96365; 96366; 96375; 96376; 99291; A9500; C9113; G0378; J1644; J2785; J3490

== ENCOUNTER → 2023-02-13 08:09 | Outpatient (BNVA) | payer MEDICARE, SELFPAY | PROVIDERS: PCP Family Medicine; Visit Provider Orthopaedic Surgery | DX: M54.50 Low back pain, unspecified (principal); Z98.1 Arthrodesis status | CPT/HCPCS: 72100; 99214 ==

== ENCOUNTER → 2023-02-20 08:50 | Outpatient (BNVA) | payer MEDICARE, SELFPAY | PROVIDERS: PCP Family Medicine; Visit Provider Nurse Practitioner Family | DX: I20.8 Other forms of angina pectoris (principal); I10 Essential (primary) hypertension | CPT/HCPCS: 99214 ==

== ENCOUNTER → 2023-03-01 10:47 | Outpatient (BNVA) | payer MEDICARE, SELFPAY | PROVIDERS: PCP Family Medicine; Visit Provider Anesthesiology Pain Medicine | DX: M50.90 Cervical disc disorder, unspecified, unspecified cervical region; M53.3 Sacrococcygeal disorders, not elsewhere classified | CPT/HCPCS: 99214 ==

== ENCOUNTER → 2023-03-20 08:53 | Outpatient (BNVA) | payer MEDICARE, SELFPAY | PROVIDERS: PCP Family Medicine; Visit Provider Nurse Practitioner Family | DX: I20.8 Other forms of angina pectoris (principal); I10 Essential (primary) hypertension; E78.5 Hyperlipidemia, unspecified | CPT/HCPCS: 99214 ==

== ENCOUNTER → 2023-03-29 12:40 | Outpatient (BNVA) | payer MEDICARE, SELFPAY | PROVIDERS: PCP Family Medicine; Visit Provider Anesthesiology Pain Medicine | DX: M53.3 Sacrococcygeal disorders, not elsewhere classified (principal); M54.9 Dorsalgia, unspecified | CPT/HCPCS: 64625; 64636; 64640; J1030 ==

== ENCOUNTER → 2023-04-12 12:32 | Outpatient (BNVA) | payer MEDICARE, SELFPAY | PROVIDERS: PCP Family Medicine; Visit Provider Anesthesiology Pain Medicine | DX: M53.3 Sacrococcygeal disorders, not elsewhere classified (principal); M54.9 Dorsalgia, unspecified | CPT/HCPCS: 64625; 64636; 64640; J1030 ==

== ENCOUNTER → 2023-04-26 09:44 | Outpatient (BNVA) | payer MEDICARE, SELFPAY | PROVIDERS: PCP Family Medicine; Visit Provider Anesthesiology Pain Medicine | DX: M54.16 Radiculopathy, lumbar region (principal); M50.90 Cervical disc disorder, unspecified, unspecified cervical region; M53.3 Sacrococcygeal disorders, not elsewhere classified | CPT/HCPCS: 99214 ==

== ENCOUNTER → 2023-07-11 09:08 | Outpatient (BNVA) | payer MEDICARE, SELFPAY | PROVIDERS: PCP Family Medicine; Visit Provider Anesthesiology Pain Medicine | DX: M54.16 Radiculopathy, lumbar region (principal); M50.90 Cervical disc disorder, unspecified, unspecified cervical region; M53.3 Sacrococcygeal disorders, not elsewhere classified; M47.812 Spondylosis without myelopathy or radiculopathy, cervical region | CPT/HCPCS: 99214 ==

== ENCOUNTER → 2023-07-15 10:15 | Outpatient (BNVA) | payer MEDICARE, SELFPAY | PROVIDERS: PCP Family Medicine; Visit Provider Nurse Practitioner | DX: R07.89 Other chest pain (principal) | CPT/HCPCS: 71046 ==

== ENCOUNTER → 2023-10-10 09:30 | Outpatient (BNVA) | payer MEDICARE, SELFPAY | PROVIDERS: PCP Family Medicine; Visit Provider Anesthesiology Pain Medicine | DX: Z98.1 Arthrodesis status (principal); M50.90 Cervical disc disorder, unspecified, unspecified cervical region; M53.3 Sacrococcygeal disorders, not elsewhere classified; M54.50 Low back pain, unspecified | CPT/HCPCS: 99214 ==

== ENCOUNTER → 2023-10-23 08:47 | Outpatient (BNVA) | payer MEDICARE, SELFPAY | PROVIDERS: PCP Family Medicine; Visit Provider Orthopaedic Surgery | DX: Z98.1 Arthrodesis status (principal); M54.9 Dorsalgia, unspecified | CPT/HCPCS: 72050; 72100; 99214 ==

== ENCOUNTER 2023-11-13 08:22 | Outpatient (CLI) | payer MEDICARE, SELFPAY ==
--- NOTE | 2023-11-13 08:45 | MR_ITS ---
WS: [id number] MRI CERVICAL SPINE NONCONTRAST TECHNIQUE: Sagittal T1, T2 and STIR imaging. Axial T2, gradient, and fiesta imaging. CLINICAL INFORMATION: neck pain COMPARISON: Outside MRI 2021 FINDINGS: Straightening of the normal cervical lordosis. Prior postoperative changes ACDF C5-C7. C2-C3: Mild facet arthropathy. Mild LEFT and no significant RIGHT foraminal narrowing. Spinal canal i s patent. C3-C4: Slight anterolisthesis C3 on C4. Moderate facet arthropathy. Mild RIGHT and no significant LEF T foraminal narrowing. Spinal canal is patent. C4-C5: Mild disc osteophyte complex with endplate ridging. Mild facet arthropathy. Mild LEFT greater than RIGHT bony foraminal narrowing. Mild facet arthropathy. C5-C6: Prior postoperative changes ACDF. Spinal canal and foramen are patent. Mild facet arthropathy. C6-C7: Postoperative changes ACDF. Mild LEFT greater than RIGHT bony foraminal narrowing. Spinal santos l is patent. C7-T1: Postoperative changes C7 anterior fusion. No significant disc bulging. Spinal canal and forame n are patent. Visualized brain stem structures: Normal. Prevertebral soft tissues: Normal. MR/MR cervical spin wo con* [id number] IMPRESSION: 1. Straightening of the normal cervical lordosis. Slight anterolisthesis C3 on C4. 2. Postoperative changes ACDF C5-C7 unchanged. 3. No significant central canal stenosis. 4. Moderate RIGHT C3-4 bony foraminal narrowing with moderate RIGHT facet arth ropathy unchanged. 5. Mild LEFT greater than RIGHT C4-5 bony foraminal narrowing unchanged. 6. Mild LEFT greater than RIGHT C6-7 bony foraminal narrowing.
== END 2023-11-13 08:23 | disposition home or self-care (01) ==
LOC: RAD 08:26
PROVIDERS: PCP Family Medicine; Visit Provider Orthopaedic Surgery
DX: M47.892 Other spondylosis, cervical region (principal); M99.61 Osseous and subluxation stenosis of intervertebral foramina of cervical region; M43.22 Fusion of spine, cervical region
CPT/HCPCS: 72141; 99214

== ENCOUNTER → 2023-11-20 14:49 | Outpatient (BNVA) | payer MEDICARE, SELFPAY | PROVIDERS: PCP Family Medicine; Visit Provider Orthopaedic Surgery | DX: Z09 Encounter for follow-up examination after completed treatment for conditions other than malignant neoplasm (principal); M47.22 Other spondylosis with radiculopathy, cervical region | CPT/HCPCS: 99214 ==

== ENCOUNTER → 2024-03-25 08:24 | Outpatient (BNVA) | payer MEDICARE, SELFPAY | PROVIDERS: PCP Family Medicine; Visit Provider Orthopaedic Surgery | DX: M54.50 Low back pain, unspecified (principal); Z98.1 Arthrodesis status | CPT/HCPCS: 72110; 99214 ==

== ENCOUNTER 2024-04-10 09:55 | Outpatient (CLI) | payer MEDICARE, SELFPAY ==
--- NOTE | 2024-04-10 10:30 | CTR_ITS ---
PROCEDURE INFORMATION: Exam: CT Lumbar Spine Without Contrast Exam date and time: 04/10/2024 10:14 AM Age: 63 years old Clinical indication: Low back pain; Prior surgery; Surgery date: 6+ months; Surgery type: Lumbar fusion TECHNIQUE: Imaging protocol: Computed tomography of the lumbar spine without contrast. Radiation optimization: All CT scans at this facility use at least one of these dose optimization techniques: automated exposure control; mA and/or kV adjustment per patient size (includes targeted exams where dose is matched to clinical indication); or iterative reconstruction. COMPARISON: MR lumbar spine wo con* [id number] 08/08/2022 1:07 PM RADIATION DOSE METRICS: Total DLP (mGy-cm): 374.44 FINDINGS: Bones/joints: Anterior and posterior spinal fusion hardware is noted. Disc replacements are noted at L5-S1 and L4-S1. Transitional anatomy is noted with rudimentary disc at S1-S2. Posterior decompression changes are noted of the mid lumbar spine. Soft tissues: Unremarkable. CT/CT lumbar spine wo con* [id number] IMPRESSION: Postsurgical change without acute finding.
== END 2024-04-10 09:56 | disposition home or self-care (01) ==
LOC: RAD 09:57
PROVIDERS: PCP Family Medicine; Visit Provider Orthopaedic Surgery
DX: Z98.1 Arthrodesis status (principal)
CPT/HCPCS: 72131

== ENCOUNTER → 2024-04-17 08:49 | Outpatient (BNVA) | payer MEDICARE, SELFPAY | PROVIDERS: PCP Family Medicine; Visit Provider Orthopaedic Surgery | DX: Z09 Encounter for follow-up examination after completed treatment for conditions other than malignant neoplasm (principal) | CPT/HCPCS: 99214 ==

== ENCOUNTER → 2024-06-04 13:54 | Outpatient (BNVA) | payer MEDICARE, SELFPAY | PROVIDERS: PCP Family Medicine; Visit Provider Internal Medicine | DX: E78.2 Mixed hyperlipidemia (principal); I10 Essential (primary) hypertension | CPT/HCPCS: 99214 ==

== ENCOUNTER 2024-07-22 10:39 | Emergency (ER) | payer MEDICARE, SELFPAY ==
[2024-07-22 11:01] VITALS: BP 162/80; PULSE 56; TEMP 36.6; O2SAT 98; BMI 24.3
--- NOTE | 2024-07-22 11:18 | XR_ITS ---
WS: [id number] Exam: XR hand LT min 3V* [id number] Date/Time of Exam: 07/22/2024 11:49 AM Reason For Exam: laceration/injury No acute fracture. No soft tissue foreign bodies are identified. Minimal degenerative changes in the IP joints. XR/XR hand LT min 3V* [id number] IMPRESSION: 1. No fracture or soft tissue foreign body.
--- NOTE | 2024-07-22 11:48 | ED_ITS ---
HPI - Wound/Laceration 2 General: Chief Complaint: Wound/Laceration Stated Complaint: sliced open left hand Time Seen by Provider: 07/22/24 10:43 Source: patient and family Mode of arrival: ambulatory Limitations: no limitations History of Present Illness: Patient is a nice 63-year-old male presents to ED today for evaluation of a left hand laceration that he sustained just prior to arrival after accidentally cut it while using a knife. Last tetanus is unknown. Onset (ago): hour(s) Extremity Location: Left: hand Place: home Context: accidental Associated symptoms: Reports no associated symptoms Treatments prior to arrival: bandage Related Data Home Medications Medication Instructions Recorded Confirmed albuterol sulfate 90 mcg/actuation 2 puff inhalation QID PRN 12/12/21 07/22/24 aerosol inhaler Shortness Of Breath acetaminophen 500 mg tablet 500 mg PO BID PRN Pain 02/10/23 07/22/24 calcium 600 mg (as 1 tab PO BID 02/10/23 07/22/24 carbonate)-vitamin D3 5 mcg (200 unit) tablet multivitamin 1 tab PO QAM 02/10/23 07/22/24 ramipril 10 mg capsule 10 mg PO DAILY 10/10/23 07/22/24 bupropion HCl 100 mg tablet,12 hr 100 mg PO BID 07/22/24 07/22/24 sustained-release oxycodone-acetaminophen 10 mg-325 1 tab PO TID 07/22/24 07/22/24 mg tablet Previous Rx's Medication Instructions Recorded cyclobenzaprine 10 mg tablet 10 mg PO TID PRN muscle spasm #60 12/14/21 tabs evolocumab 140 mg/mL subcutaneous 140 mg SUBCUT .every 2 weeks #2 mL 10/24/23 pen injector (Repatha SureClick) Allergies Allergy/AdvReac Type Severity Reaction Status Date / Time Alpha-Gal Allergy ADR-Abdominal Verified 07/22/24 11:06 ([id number],3-Gala Pain morphine Allergy ADR-Anxiety Verified 07/22/24 11:06 tramadol Allergy Unknown Verified 07/22/24 11:06 Review of Systems 2 Musc: Reports: extremity pain (L hand laceration) Skin/Breast: Reports: other (laceration L hand) Neuro: Denies: numbness in extremities, weakness in extremities or sensory changes PFSH ED 2 PFSH: Medical History HTN (hypertension) Cervical spondylosis with radiculopathy Surgical History Status post lumbar spinal fusion Family History Father CAD (coronary artery disease) Social History Smoking and tobacco/nicotine status: never used tobacco/nicotine Alcohol intake: never Substance/Drug Use: never Physical Exam 2 Const: COMMON NORMALS: no acute distress, average body habitus, patient oriented x3, no limitations, healthy appearing, alert and well nourished Extremity: COMMON NORMALS: full ROM and capillary refill normal GENERAL: Y es normal exam except as noted LEFT UPPER EXTREMITY: Yes hand & digits Left hand and digits: Yes inspection (laceration), Yes ROM (normal), Yes neurovascular exam (normal) and Yes tendon exam (normal) Hand Left Back: 1. 2.5cm laceration; full ROM of thumb in all field against resistance Neuro: COMMON NORMALS: patient oriented x3, moves all extremities, no focal motor deficits and no sensory deficits noted SENSORIUM/ORIENTATION: Yes alert Skin: TRAUMA: laceration Procedures Laceration Laceration 1: Site: hand Side (If applicable): left Size (cm): 2.5 Description: linear Depth: simple, single layer Local Anesthetic: lidocaine 1% and with epi Amount of anesthesia used (mL): 2.0 Pre-repair: wound explored and irrigated extensively Skin layer closed with: nylon Size (cm): 4-0 Number of sutures: 4 Technique: simple, interrupted Course 2 Vital Signs: Vital signs: Vital Signs Temperature 97.9 F 07/22/24 11:01 Pulse Rate 56 L 07/22/24 11:01 Blood Pressure 162/80 07/22/24 11:01 Pulse Oximetry 98 07/22/24 11:01 Oxygen Delivery Me thod Room Air 07/22/24 11:01 MDM - Wound/Laceration Medical Decision Making Wound was copiously irrigated and repaired as documented. XR is unremarkable. No tendon or nerve involvement. Wound care/infection precautions/suture removal were all discussed with patient who verbalized understanding. Lab Data Radiology Impressions Hand X-Ray 07/22/24 11:18 IMPRESSION: 1. No fracture or soft tissue foreign body. All radiology interpretation(s) finalized by discharge Discharge Plan Discharge Patient Disposition: Home Clinical Impression: Laceration of hand, left Qualifiers: Encounter type: initial encounter Foreign body presence: without foreign body Q ualified Code(s): S61.412A - Laceration without foreign body of left hand, initial encounter Condition: Stable Prescriptions: No Action Repatha SureClick 140 mg/mL pen injector 140 mg SUBCUT .every 2 weeks Qty: 2 11RF ramipril 10 mg capsule 10 mg PO DAILY albuterol sulfate 90 mcg/actuation HFA aerosol inhaler 2 puff INHALATION QID PRN (Reason: Shortness Of Breath) cyclobenzaprine 10 mg tablet 10 mg PO TID PRN (Reason: muscle spasm) Qty: 60 0RF multivitamin Tablet 1 tab PO QAM calcium carbonate-vitamin D3 600 mg-5 mcg (200 unit) Tablet 1 tab PO BID acetaminophen 500 mg Tablet 500 mg PO BID PRN (Reason: Pain) bupropion HCl 100 mg tablet sustained-release 12 hr 100 mg PO BID oxycodone-acetaminophen 10-325 mg tablet 1 tab PO TID Discharge Orders: Discharge ED (Routine); Ordered 07/22/24 Ordered By: Karely Hagen Referrals: Cecelia Maloney DO [Primary Care Provider] - Patient Instructions: Laceration (DC) Activity Restrictions/Additional Instructions: Keep wound/laceration clean with warm soap and water twice daily. Monitor for signs of infection such as redness, swelling, increased pain, or drainage. Please seek medical re-evaluation if these occur. If you received sutures today these will need to be removed (unless you were told by the provider that they are absorbable). The provider should have discussed with you the length of time until removal-7 DAYS. Coding Level of Care Code ED Family Practice Physician Assistant for Dionne Marie
[2024-07-22] MEDS: tetanus-dipt-pertussis 0.5 mL SDV IM (12:08)
--- NOTE | 2024-07-22 12:26 | PC.NURSE ---
pt laceration cleansed with ns and pat dry with gauze, applied pressure to laceration.
[2024-07-22 12:36] VITALS: BP 136/73; PULSE 60; O2SAT 96
== END 2024-07-22 12:38 | disposition home or self-care (01) ==
PROVIDERS: Emergency Provider Physician Assistant; PCP Family Medicine
DX: S61.412A Laceration without foreign body of left hand, initial encounter (principal); I10 Essential (primary) hypertension; X58.XXXA Exposure to other specified factors, initial encounter
CPT/HCPCS: 12001; 73130; 90471; 90715; 99283

== ENCOUNTER → 2025-05-07 14:42 | Outpatient (BNVA) | payer MEDICARE, SELFPAY | PROVIDERS: PCP Family Medicine; Visit Provider Orthopaedic Surgery | DX: Z47.89 Encounter for other orthopedic aftercare (principal); M54.9 Dorsalgia, unspecified | CPT/HCPCS: 72050; 72110; 99213 ==